=== PATIENT | female | born 1975 | race African-American/Black ===

== ENCOUNTER 2016-06-01 11:31 | Day surgery (SDC) | payer OTHER ==
[2016-06-01] VITALS (16 sets, daily range): BP systolic 100–138; BP diastolic 56–100; PULSE 74–82; RESP 11–19; Ht 165.1 cm; Wt 99.0 kg
[~2016-06-01] VITALS: Ht 165.1 cm; Wt 99.0 kg
[~2016-06-01 11:31] MED LIST: CEFAZOLIN 1 GM INJ ONE; CEFAZOLIN 2 GM/50 ML (PMX) 50 ML IVPB SCH; SOD CHLORIDE 0.9% 1,000 ML IV SCH
[2016-06-01] MEDS ORDERED: BUPIVACAINE 0.25% (MPF) 30 ML INJ ONE (15:44)
[2016-06-01] MEDS ORDERED: PROPOFOL 60 ML ONE (16:53)
[2016-06-01] MEDS ORDERED: LIDOCAINE 2% (SDV) 5 ML INJ ONE (16:53)
[2016-06-01] MEDS ORDERED: FENTAnyl 50 MCG/ML VIAL ONE (16:54)
--- NOTE | 2016-06-01 17:56 | OPR ---
DATE OF OPERATION: 06/01/2016 INDICATION: This is a 41-year-old female with a posterior fissure. She requests surgical excision. Risks, alternatives, benefits, and personnel were discussed with the patient. The patient express ed understanding and consents to the operation. PREOPERATIVE DIAGNOSIS: Posterior fissure. POSTOPERATIVE DIAGNOSIS: Posterior fissure. OPERATION PERFORMED: 1. Posterior fissurectomy. 2. Rigid proctoscopy. SURGEON: Michelle Gilliam MD SPECIMEN: Posterior fissure. COMPLICATIONS: None. ANESTHESIA: General. PROCEDURE: The patient was taken to the OR and prepped and draped in the usual sterile fashion. Rm rgical timeout was performed. IV antibiotics were given. Rigid proctoscopy was performed. There w as no evidence of any anal lesions or masses. Prep was poor. Attention was addressed to the grain mill products inspector ior fissure. There was sentinel piles in the posterior fissure. This was all excised with the 15 b lade and cautery. The surgical site was hemostatic. The wound was then primarily closed with a run amirah 3-0 Vicryl. Local anesthesia was injected. Dry dressings were applied. Dictated By: MICHELLE HARMAN/JONATHON Conf#: [id number] DID#: [id number]
[2016-06-01] MEDS ORDERED: hydrALAzine 20 MG INJ IV PRN (18:00)
[2016-06-01] MEDS ORDERED: ONDANSETRON 4 MG INJ IV PRN (18:00)
[2016-06-01] MEDS ORDERED: HYDROCODONE/APAP (5/325) TAB PO ONE (18:00)
[2016-06-01] MEDS ORDERED: LABETALOL HCL 20MG INJ IV PRN (18:00)
[2016-06-01] MEDS ORDERED: HYDROmorphONE (0.2 MG/ML) 10ML SYG IV PRN (18:00)
[2016-06-01] MEDS ORDERED: MEPERIDINE 25 MG INJ IV PRN (18:00)
[2016-06-01] MEDS ORDERED: EPHEDrine SULFATE 50 MG/5 ML SYG IV PRN (18:00)
[2016-06-01] MEDS: HYDROmorphONE (0.2 MG/ML) 10ML SYG IV PRN ×2 (18:10→18:24)
== END 2016-06-01 19:22 | disposition home or self-care (01) ==
LOC: SDS 11:31
PROVIDERS: ATTEND Surgery
DX: K60.2 Anal fissure, unspecified (principal); I10 Essential (primary) hypertension; Z86.73 Personal history of transient ischemic attack (TIA), and cerebral infarction without residual deficits
CPT/HCPCS: 45300; 46200; 88304; J0690; J1170; J2405; J3010; Z7512; Z7610

== ENCOUNTER 2016-06-12 14:19 | Inpatient (IN) | payer OTHER ==
[~2016-06-12] VITALS: Ht 165.1 cm; Wt 94.7 kg
--- NOTE | 2016-06-12 15:04 | ERA ---
ER Documentation Chief Complaint Date/Time DATE: 06/12/16 TIME: 15:04 Chief Complaint constipation x 3 weeks HPI The patient is a 41-year-old female, presenting to the ER because of severe constipation for the last 3 weeks after fissurectomy by Dr. Gilliam. The patient was evaluated by Dr. Gilliam today who sent her to the ER for disimpaction by gastroenterology. She denies fever, chills, neck pain, chest pain, dyspnea. She complains of generalized diffuse abdominal discomfort denies dysuria, polyuria. She does not smoke nor drink Past medical history: History of CVA, hypertension Past surgical history: Hysterectomy, cholecystectomy ROS All systems reviewed and are negative except as per history of present illness. Allergies Allergies: Coded Allergies: No Known Allergy (Unverified , 05/31/16) PER PRE-OP PMhx/Soc History of Surgery: Yes (PARTIAL HYSTERECTOMY.CHOLECYSTECTOMY.BTL) Anesthesia Reaction: No Hx Neurological Disorder: Yes (MILD STROKE ,SZ X1 EPISODE) Hx Respiratory Disorders: No Hx Cardiac Disorders: Yes (HTN) Hx Psychiatric Problems: No Hx Miscellaneous Medical Probl: No Hx Alcohol Use: No Hx Substance Use: No Hx Tobacco Use: No Physical Exam Vitals Vital Signs Date Time Temp Pulse Resp B/P Pulse Ox O2 Delivery O2 Flow Rate FiO2 06/12/16 14:22 98.1 83 18 134/90 99 Physical Exam Const: No acute distress. Head: Atraumatic. Eyes: Normal Conjunctiva. ENT: Normal External Ears, Nose and Mouth. Neck: Full range of motion. No meningismus. Resp: Clear to auscultation bilaterally. Cardio: Regular rate and rhythm, no murmurs. Abd: Soft, non distended, normal bowel sounds, vague and diffuse abdominal discomfort, no rigidity, rebound, CVA tenderness Skin: No petechiae or rashes. Back: No midline or flank tenderness. Ext: No cyanosis, or edema. Neur: Awake and alert. No focal deficit Psych: Normal Mood and Affect. Result Diagram: 06/12/16 1630 06/12/16 1630 Results 24 hrs Laboratory Tests Test 06/12/16 16:30 06/12/16 17:35 White Blood Count 7.610^3/ul Red Blood Count 3.9210^6/ul Hemoglobin 11.3g/dl Hematocrit 35.9% Mean Corpuscular Volume 91.6fl Mean Corpuscular Hemoglobin 28.8pg Mean Corpuscular Hemoglobin Concent 31.5g/dl Red Cell Distribution Width 14.4% Platelet Count 86345^3/UL Mean Platelet Volume 9.8fl Neutrophils % 78.0% Lymphocytes % 15.0% Monocytes % 7.0% Neutrophils # 5.910^3/ul Lymphocytes # 1.110^3/ul Monocytes # 0.510^3/ul Sodium Level 142mmol/L Potassium Level 3.6mmol/L Chloride Level 97mmol/L Carbon Dioxide Level 30mmol/L Anion Gap 19 Blood Urea Nitrogen 14mg/dl Creatinine 1.52mg/dl Glucose Level 95mg/dl Calcium Level 10.0mg/dl Total Bilirubin 0.4mg/dl Direct Bilirubin 0.00mg/dl Indirect Bilirubin 0.4mg/dl Aspartate Amino Transf (AST/SGOT) 128IU/L Alanine Aminotransferase (ALT/SGPT) 64IU/L Alkaline Phosphatase 58IU/L Total Protein 9.4g/dl Albumin 4.9g/dl Globulin 4.50g/dl Albumin/Globulin Ratio 1.08 Lipase 180U/L Bedside Urine pH (LAB) 6.5 Bedside Urine Protein (LAB) 2+ Bedside Urine Glucose (UA) Negative Bedside Urine Ketones (LAB) Trace Bedside Urine Blood Negative Bedside Urine Nitrite (LAB) Negative Bedside Urine Leukocyte Esterase (L Negative Procedures/[place] [id number] Radiology Main Line: [phone] DIAGNOSTIC IMAGING REPORT Patient: TRACEY ERAZO : 1975 Age: 41 Sex: F MR #: [id number] [facility] #: [id number] DOS: 06/12/16 formerly [facility] Ordering MD: JOANNA FELIPE MD Location: FTE Room/Bed: PROCEDURE: CT Abdomen and Pelvis without contrast. CLINICAL INDICATION: Abdominal pain recent history of rectal fissure surgery. TECHNIQUE: CT scan of the abdomen and pelvis without contrast was performed on a multidetector high-resolution CT scanner. The patient was scanned without intravenous contrast. Coronal and sagittal reformatted images were obtained from the axial source images. Images were reviewed on a high-resolution PACS workstation. The total exam CTDI equals 19.62 mGy and the total exam DLP equals 1267.99 mGy-cm. One or more of the following dose reduction techniques were used: Automated exposure control. Adjustment of the mA and/or kV according to patient size. Use of iterative reconstruction technique. COMPARISON: None FINDINGS: CT abdomen: The lung bases are clear. The heart is normal in size with mild circumferential pericardial effusion. The liver is normal in size and density without focal mass or intrahepatic biliary dilatation. The spleen is normal in size and homogeneous in density. The stomach is partially collapsed, but is grossly unremarkable. The pancreas as visualized is normal. The gallbladder is surgically absent. There is no evidence for biliary dilatation. The adrenal glands are symmetric and normal. The kidneys are symmetrically unremarkable as well. There is 2 mm punctate nonobstructing stone in the mid pole right kidney. The aorta is of normal caliber. There is no retroperitoneal lymphadenopathy. The dewey hepatis region is clear. The bowel and mesentery, as visualized, are equally unremarkable. CT pelvis: The small bowel loops situated within the pelvis are unremarkable. The pelvic organs are normal. The pelvic sidewalls and inguinal regions are clear. The sigmoid colon and rectum are remarkable for significant stool retention. No mass, lymphadenopathy, or free fluid is seen. No acute inflammation is seen. The surrounding osseous structures are remarkable for degenerative spondylosis of the spine. No osteolytic or osteoblastic lesion is detected. IMPRESSION: 1. Significant stool retention in the sigmoid colon and the rectum. 2. Normal heart size with mild circumferential pericardial effusion. 3. Status post cholecystectomy. No biliary ductal dilatation. 4. A punctate 2 mm nonobstructing stone in the right kidney. RPTAT: BB .Ben Obrien MD, Date Time Electronically viewed and signed by .Ben Obrien MD, on 06/12/2016 17:42 .O/ CC: JOANNA FELIPE MD MEDICAL MAKING DECISION: The patient is a 41-year-old female, presenting with obstipation, renal insufficiency. The differential diagnoses considered include but are not limited to cholelithiasis, cholecystitis, cystitis, pancreatitis, hepatitis, gastritis, peptic ulcer disease, gastric ulcer, appendicitis, diverticulitis, cholangitis, choledocholithiasis, partial small bowel obstruction. Departure Diagnosis: Primary Impression: Obstipation Additional Impressions: Renal insufficiency Anemia Condition: Stable Comments I discussed the patient with the [facility] hospitalist who authorized admission to [facility] panel I discussed the findings with the patient. I discussed the patient with his physician Dr. Matson who was made aware of the lab, the treatment, the patient condition. The patient is admitted to medical surgery bed at 7:40 PM JOANNA FELIPE MD Jun 12, 2016 15:04
[2016-06-12 16:45] LABS: ADD SCAN DIFF NO
[2016-06-12 16:48] LABS: HEMATOCRIT 35.9 % (37.0-47.0); HEMOGLOBIN 11.3 g/dl (12.0-16.0); MEAN CORPUSCULAR HEMOGLOBIN 28.8 pg (29.0-33.0); MEAN CORPUSCULAR HGB CONC 31.5 g/dl (32.0-37.0); MEAN CORPUSCULAR VOLUME 91.6 fl (82.0-101.0); MEAN PLATELET VOLUME 9.8 fl (7.4-10.4); PLATELET COUNT 251 10^3/UL (140-415); RED BLOOD COUNT 3.92 10^6/ul (4.20-5.40); RED CELL DISTRIBUTION WIDTH 14.4 % (11.5-14.5); WHITE BLOOD COUNT 7.6 10^3/ul (4.8-10.8)
[2016-06-12 17:02] LABS: ALBUMIN 4.9 g/dl (3.3-4.9)
[2016-06-12 17:03] LABS: POTASSIUM 3.6 mmol/L (3.5-5.1)
[2016-06-12 17:05] LABS: ALBUMIN/GLOBULIN RATIO 1.08; BILIRUBIN,INDIRECT 0.4 mg/dl (0-1.1); BILIRUBIN,TOTAL 0.4 mg/dl (0.2-1.3); CREATININE 1.52 mg/dl (0.44-1.00); TOTAL PROTEIN 9.4 g/dl (6.1-8.1)
[2016-06-12 17:35] LABS: URINE BLOOD (Dip) POC Negative (NEGATIVE)
[2016-06-12 17:37] LABS: LYMPHOCYTES # 1.1 10^3/ul (0.8-2.9); MONOCYTE # 0.5 10^3/ul (0.3-0.9); NEUTROPHIL # 5.9 10^3/ul (1.6-7.5)
--- NOTE | 2016-06-12 17:42 | RADRPT ---
PROCEDURE: CT Abdomen and Pelvis without contrast. CLINICAL INDICATION: Abdominal pain recent history of rectal fissure surgery. TECHNIQUE: CT scan of the abdomen and pelvis without contrast was performed on a multidetector hig h-resolution CT scanner. The patient was scanned without intravenous contrast. Coronal and sagittal reformatted images were obtained from the axial source images. Images were reviewed on a high-resol [employer] PACS workstation. The total exam CTDI equals 19.62 mGy and the total exam DLP equals 1267.99 m Gy-cm. One or more of the following dose reduction techniques were used: Automated exposure control. Adjustment of the mA and/or kV according to patient size. Use of iterative reconstruction technique. COMPARISON: None FINDINGS: CT abdomen: The lung bases are clear. The heart is normal in size with mild circumferential pericardial effusion . The liver is normal in size and density without focal mass or intrahepatic biliary dilatation. T he spleen is normal in size and homogeneous in density. The stomach is partially collapsed, but is grossly unremarkable. The pancreas as visualized is normal. The gallbladder is surgically absent. There is no evidence for biliary dilatation. The adrenal glands are symmetric and normal. The kidn eys are symmetrically unremarkable as well. There is 2 mm punctate nonobstructing stone in the mid pole right kidney. The aorta is of normal caliber. There is no retroperitoneal lymphadenopathy. The dewey hepatis christian on is clear. The bowel and mesentery, as visualized, are equally unremarkable. CT pelvis: The small bowel loops situated within the pelvis are unremarkable. The pelvic organs are normal. T he pelvic sidewalls and inguinal regions are clear. The sigmoid colon and rectum are remarkable for significant stool retention. No mass, lymphadenopathy, or free fluid is seen. No acute inflammati on is seen. The surrounding osseous structures are remarkable for degenerative spondylosis of the spine. No ost eolytic or osteoblastic lesion is detected. IMPRESSION: 1. Significant stool retention in the sigmoid colon and the rectum. 2. Normal heart size with mild circumferential pericardial effusion. 3. Status post cholecystectomy. No biliary ductal dilatation. 4. A punctate 2 mm nonobstructing stone in the right kidney. RPTAT: BB .Ben Obrien MD, Date Time Electronically viewed and signed by .Ben Obrien MD, MD on 06/12/2016 17:42 .O/
[2016-06-12] MEDS ORDERED: KETOROLAC 15 MG INJ IV STA (20:02)
--- NOTE | 2016-06-12 20:04 | HP ---
Date/Time of Note Date/Time of Note DATE: 06/12/16 TIME: 20:03 Assessment/Plan VTE Prophylaxis VTE Prophylaxis Intervention: other (Lovenox) Assessment/Plan Assessment/Plan 1) Anal pain s/p fissurectomy - Admit to Med Surg - NPO initially, but changed to clears - Toradol for pain control as patient did not care for narcotics and does well on Aleve at home - Phone4 Consult with Dr. Gilliam 2) Functional constipation - Magnesium Citrate po - CONSULT: Gastroenterology - Dr. Ybarra (will cancel if pt able to have BM) 3) Renal insufficiency - Monitor - BMP in AM HPI/ROS Admit Date/Time Admit Date/Time 06/12/161944 Hx of Present Illness Per ER Physician, this 41-year-old female, presents to the ER because of severe constipation for the last 3 weeks after fissurectomy by Dr. Gilliam. The patient was evaluated by Dr. Gilliam today who sent her to the ER for disimpaction by gastroenterology. Patient complains of severe rectal pain when she tries to have a BM. She states she has been doing Sitz-Baths. Her only symptoms are rectal pain and bleeding and mild abdominal pain. No nausea, vomiting, fever or chills. I contacted Dr. Ybarra after patient was admitted. He gave me a suggestion for Lactulose 60 mL po Q 2 hr x 3, but said her surgeon should make the call. I then contacted Dr. Gilliam, and he stated that patient had been non-compliant with his bowel regiment. She was supposed to notify him if she did not have a BM in a day or 2, which she did not. He did see her in his office today, and he recommends either GoLytely or Magnesium Citrate, and if patient has a BM, she can be discharged and follow-up with him, and the GI consult can be canceled. If she salazar not have a BM. then a GI procedure would be indicated. ROS General: Admits: Denies: Fever, Chills, Poor Appetite, Generalized Body Aches Eyes: Admits: Denies: Blurry Vision, Double Vision HENT: Admits: Denies: Ear Pain/Pressure, Runny/Stuffy Nose, Sore Throat Cardiovascular: Admits: Denies: Chest Pain, Palpitations, Leg Swelling Pulmonary: Admits: Denies: Cough, Wheeze, Shortness of Breath Gastrointestinal: Admits: Denies: Abdominal Pain, Nausea, Vomiting, Diarrhea, Blood in Stool, Black-Colored Stool Urogenital: Admits: Denies: Burning with Urination, Urinary Frequency, Blood in Urine, Nocturia Musculoskeletal: Admits: Denies: Joint Pain, Joint Swelling, Muscle Pain Neurological: Admits: Denies: Headache, Dizziness, Numbness, Tingling, Shooting Pains Integumentary: Admits: Denies: Rash, Itch Endocrine: Admits: Denies: Excessive Thirst, Excessive Hunger, Intolerant to Cold , Intolerant to Heat Psychiatric: Admits: Denies: Anxiety, Depression PMH/Family/Social Past Medical History HTN, 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 (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, Seizure x 1 Past Surgical History Hysterectomy; Cholecystectomy; BTL Social History Alcohol Use: none Smoking Status: Never smoker Drug Use: none Exam/Review of Systems Vital Signs Vitals Vital Signs Date Time Temp Pulse Resp B/P Pulse Ox O2 Delivery O2 Flow Rate FiO2 06/12/16 14:22 98.1 83 18 134/90 99 Exam Exam General: Overweight Black female, alert and oriented, in no acute distress Eyes: Sclera White, EOMI HENT: Normocephalic/Atraumatic, External Ears/Nose Normal, Moist Mucus Membranes Neck: Supple, Trachea Midline Cardiovascular: Normal Rate, Normal Rhythm, Normal S1 and S2, No Murmur, No Extra Sounds. Radial pulse +2/4. No pedal edema. Pulmonary: Clear to Auscultation Bilaterally, Normal Respiratory Effort, No Rales, Rhonchi or Wheezes Gastrointestinal: Normoactive Bowel Sounds, Soft, Mild generalized tenderness. No guarding or rebound.No distention, No Hepatosplenomegaly Appreciated, No Pulsatile Masses. Rectal Exam: Deferred Urogenital: Deferred Musculoskeletal: Normal Muscle Bulk and Tone Neurological: CN II - XII Grossly Intact, Non-Focal, Speech Normal other than patient occasionally has a delay with expressing her thoughts, but she is able to say all the words she want to. Integumentary: Normal Moisture and Temperature, Good Turgor, No Jaundice, No Rash Lymphatic: No Cervical Lymphadenopathy Psychiatric: Appropriate Mood and Affect, Good Eye Contact Labs Result Diagram: 06/12/16 1630 06/12/16 1630 Procedures Procedures Laboratory Tests Test 06/12/16 16:30 06/12/16 17:35 White Blood Count 7.610^3/ul Red Blood Count 3.9210^6/ul Hemoglobin 11.3g/dl Hematocrit 35.9% Mean Corpuscular Volume 91.6fl Mean Corpuscular Hemoglobin 28.8pg Mean Corpuscular Hemoglobin Concent 31.5g/dl Red Cell Distribution Width 14.4% Platelet Count 93043^3/UL Mean Platelet Volume 9.8fl Neutrophils % 78.0% Lymphocytes % 15.0% Monocytes % 7.0% Neutrophils # 5.910^3/ul Lymphocytes # 1.110^3/ul Monocytes # 0.510^3/ul Sodium Level 142mmol/L Potassium Level 3.6mmol/L Chloride Level 97mmol/L Carbon Dioxide Level 30mmol/L Anion Gap 19 Blood Urea Nitrogen 14mg/dl Creatinine 1.52mg/dl Glucose Level 95mg/dl Calcium Level 10.0mg/dl Total Bilirubin 0.4mg/dl Direct Bilirubin 0.00mg/dl Indirect Bilirubin 0.4mg/dl Aspartate Amino Transf (AST/SGOT) 128IU/L Alanine Aminotransferase (ALT/SGPT) 64IU/L Alkaline Phosphatase 58IU/L Total Protein 9.4g/dl Albumin 4.9g/dl Globulin 4.50g/dl Albumin/Globulin Ratio 1.08 Lipase 180U/L Bedside Urine pH (LAB) 6.5 Bedside Urine Protein (LAB) 2+ Bedside Urine Glucose (UA) Negative Bedside Urine Ketones (LAB) Trace Bedside Urine Blood Negative Bedside Urine Nitrite (LAB) Negative Bedside Urine Leukocyte Esterase (L Negative PROCEDURE: CT Abdomen and Pelvis without contrast. CLINICAL INDICATION: Abdominal pain recent history of rectal fissure surgery. COMPARISON: None IMPRESSION: 1. Significant stool retention in the sigmoid colon and the rectum. 2. Normal heart size with mild circumferential pericardial effusion. 3. Status post cholecystectomy. No biliary ductal dilatation. 4. A punctate 2 mm nonobstructing stone in the right kidney. LESLY REN DO Jun 12, 2016 20:04
[2016-06-12] MEDS ORDERED: METOCLOPRAMIDE 10 MG INJ IV PRN (20:30)
[2016-06-12] MEDS ORDERED: NACL 0.9% 3 ML SYG IV SCH (20:30)
[2016-06-12] MEDS ORDERED: ACETAMINOPHEN 325 MG TAB PO PRN (20:30)
[2016-06-12] MEDS ORDERED: ONDANSETRON 4 MG TAB PO PRN (20:30)
[2016-06-12 21:49] VITALS: TEMP 98.3
[2016-06-12] MEDS ORDERED: GUAN1TAB15 PO (22:10)
[2016-06-12] MEDS ORDERED: ZOC10 PO (22:11)
[2016-06-12] MEDS ORDERED: SPIR25TA PO (22:11)
[2016-06-12] MEDS ORDERED: CHLORTHALIDONE PO (22:12)
[2016-06-12] MEDS ORDERED: MAGNESIUM CITRATE 300 ML BTL PO ONE (22:30)
[2016-06-12 22:48] LABS: HAAIG REFLEX REFLEX FILED
[2016-06-12 22:53] VITALS: Ht 165.1 cm; Wt 94.7 kg
[2016-06-12 22:56] VITALS: BP 139/100; RESP 18
[2016-06-12 23:44] LABS: HEPATITIS B CORE ANTIBODY NEGATIVE (NEGATIVE)
[2016-06-13] MEDS: FAMOTIDINE 20 MG INJ IV SCH ×2 (00:05→08:31)
[2016-06-13 05:42] LABS: ADD SCAN DIFF NO
[2016-06-13 05:46] LABS: BASOPHILS % 0.4 % (0.0-2.0); HEMATOCRIT 35.7 % (37.0-47.0); HEMOGLOBIN 11.8 g/dl (12.0-16.0); LYMPHOCYTES # 1.4 10^3/ul (0.8-2.9); LYMPHOCYTES % 25.1 % (15.0-51.0); MEAN CORPUSCULAR HEMOGLOBIN 29.8 pg (29.0-33.0); MEAN CORPUSCULAR HGB CONC 33.1 g/dl (32.0-37.0); MEAN CORPUSCULAR VOLUME 90.2 fl (82.0-101.0); MEAN PLATELET VOLUME 9.8 fl (7.4-10.4); MONOCYTE # 0.4 10^3/ul (0.3-0.9); MONOCYTES % 6.9 % (0.0-11.0); NEUTROPHIL # 3.7 10^3/ul (1.6-7.5); NEUTROPHILS % 67.4 % (39.0-77.0); PLATELET COUNT 257 10^3/UL (140-415); RED BLOOD COUNT 3.96 10^6/ul (4.20-5.40); RED CELL DISTRIBUTION WIDTH 14.1 % (11.5-14.5); WHITE BLOOD COUNT 5.5 10^3/ul (4.8-10.8)
[2016-06-13 06:24] LABS: POTASSIUM 3.3 mmol/L (3.5-5.1)
[2016-06-13 06:27] LABS: CREATININE 1.45 mg/dl (0.44-1.00)
[2016-06-13 06:28] LABS: CALCIUM 9.7 mg/dl (8.4-10.2)
[2016-06-13 07:52] VITALS: BP 132/92; RESP 16
[2016-06-13] MEDS: SPIRONOLACTONE 25 MG TAB PO SCH (08:26)
[2016-06-13] MEDS: ENOXAPARIN 40 MG/0.4 ML SYG SC SCH (09:13)
--- NOTE | 2016-06-13 10:56 | CONS ---
Date/Time of Note Date/Time of Note DATE: 06/13/16 TIME: 10:37 Assessment/Plan Assessment/Plan Additional Assessment/Plan Assessment * Constipation functional vs others * Anal pain * S/P Fissurectomy 2 weeks ago * 06/11/2016 CT abdomen /pelvis Significant stool retention in the sigmoid colon and the rectum. Normal heart size with mild circumferential pericardial effusion. Status post cholecystectomy. No biliary ductal dilatation. A punctate 2 mm nonobstructing stone in the right kidney. * Hypertension Plan * may have clear liquids * lactulose * surgery consult Consultation Date/Type/Reason Admit Date/Time 06/12/161944 Type of Consultation: Gastroenterology Reason for Consultation Obstipation Referring Provider: LESLY REN DO Hx of Present Illness 31 year olf female with past medical history of hypertension referred to us for evaluation of obstipation.Patient had fissurectomy [address] Gilliam,, since then patient is unable to have bowel movement but with flatus ,denies any nausea and vomiting.She followed up with surgeon and was referred to our emergency room for evaluation and disimpaction.she complained of severe anal pain with no bowel movement despite hot sitz bath,and dulcolax. CT abdomen pelvis revealed 1. Significant stool retention in the sigmoid colon and the rectum. 2. Normal heart size with mild circumferential pericardial effusion. 3. Status post cholecystectomy. No biliary ductal dilatation. 4. A punctate 2 mm nonobstructing stone in the right kidney. Patient still complains of anal pain and obstipation despite intake of Magnesium, citrate,no fever or abdominal pain Constitutional: improved, no complaints Eyes: no complaints ENT: no complaints Respiratory: no complaints Cardiovascular: no complaints Gastrointestinal: constipation, flatus, other (obstipation), pain, No passing stool, No vomiting Genitourinary: no complaints Musculoskeletal: no complaints Skin: no complaints Neurologic: no complaints Endocrine: no complaints Lymphatic: no complaints Psychological: nl mood/affect, no complaints Immunologic: no complaints Past Medical History Medical History: hypertension Past Surgical History Past Surgical Hx: cholecystectomy Family History Significant Family History: no pertinent family hx Social History Alcohol Use: none Smoking Status: Never smoker Drug Use: none Exam/Review of Systems Vital Signs Vitals Vital Signs Date Time Temp Pulse Resp B/P Pulse Ox O2 Delivery O2 Flow Rate FiO2 06/13/16 07:52 98.2 80 16 132/92 98 06/12/16 21:49 Room Air Exam Constitutional: alert, oriented, other (anxious), well developed Psych: nl mood/affect, no complaints Head: atraumatic, normocephalic Eyes: EOMI, PERRL, nl conjunctiva, nl lids, nl sclera ENMT: nl external ears & nose, nl lips & teeth, nl nasal mucosa & septum Neck: non-tender, supple Respiratory: clear to auscultation, normal air movement Cardiovascular: nl pulses, regular rate and rhythm Gastrointestinal: bowel sounds, nl liver, spleen, non-tender, soft, No rebound or guarding, No tender Musculoskeletal: nl extremities to inspection, nl gait and stance Extremities: normal pulses Neurological: CUSTOMIZER II-XII intact, nl mental status, nl speech, nl strength Skin: nl turgor, No rash or lesions Lymph: nl lymph nodes Results Result Diagram: 06/13/16 0525 06/13/16 0525 Results 24 hrs Laboratory Tests Test 06/12/16 16:30 06/12/16 16:35 06/12/16 17:35 06/13/16 05:25 White Blood Count 7.6 5.5 # Red Blood Count 3.92 L 3.96 L Hemoglobin 11.3 L 11.8 L Hematocrit 35.9 L 35.7 L Mean Corpuscular Volume 91.6 90.2 Mean Corpuscular Hemoglobin 28.8 L 29.8 Mean Corpuscular Hemoglobin Concent 31.5 L 33.1 Red Cell Distribution Width 14.4 14.1 Platelet Count 251 257 Mean Platelet Volume 9.8 9.8 Neutrophils % 78.0 H 67.4 Lymphocytes % 15.0 25.1 Monocytes % 7.0 6.9 Neutrophils # 5.9 3.7 Lymphocytes # 1.1 1.4 Monocytes # 0.5 0.4 Sodium Level 142 141 Potassium Level 3.6 3.3 L Chloride Level 97 100 Carbon Dioxide Level 30 28 Anion Gap 19 H 16 Blood Urea Nitrogen 14 14 Creatinine 1.52 H 1.45 H Glucose Level 95 91 Calcium Level 10.0 9.7 Total Bilirubin 0.4 Direct Bilirubin 0.00 Indirect Bilirubin 0.4 Aspartate Amino Transf (AST/SGOT) 128 H Alanine Aminotransferase (ALT/SGPT) 64 Alkaline Phosphatase 58 Total Protein 9.4 H Albumin 4.9 Globulin 4.50 H Albumin/Globulin Ratio 1.08 Lipase 180 Hepatitis B Surface Antigen NEGATIVE Hepatitis B Core Total Antibody NEGATIVE Hepatitis C Antibody NEGATIVE Bedside Urine pH (LAB) 6.5 Bedside Urine Protein (LAB) 2+ H Bedside Urine Glucose (UA) Negative Bedside Urine Ketones (LAB) Trace H Bedside Urine Blood Negative Bedside Urine Nitrite (LAB) Negative Bedside Urine Leukocyte Esterase (L Negative Eosinophils % 0.0 Basophils % 0.4 Nucleated Red Blood Cells % 0.0 Eosinophils # 0.0 Basophils # 0.0 Nucleated Red Blood Cells # 0.0 Medications Medications Current Medications Ondansetron HCl (Zofran Tab) 4 mg Q6H PRN PO NAUSEA AND/OR VOMITING; Start 06/12 at 20:30 Metoclopramide HCl (Reglan) 10 mg Q6H PRN IV NAUSEA AND/OR VOMITING; Start 06/12 at 20:30 Acetaminophen (Tylenol Tab) 650 mg Q6H PRN PO PAIN LEVEL 1-3 OR FEVER; Start at 20:30 Morphine Sulfate (morphine) 2 mg Q4H PRN IV SEVERE PAIN LEVEL 7-10; Start at 20:30 Famotidine (Pepcid Iv) 20 mg DAILY IV Last administered on 06/13/16 08:31; Admin Dose 20 MG; Start 06/12/16 at 22:00 Enoxaparin Sodium (Lovenox) 40 mg DAILY SC Last administered on 06/13/16 09:13 ; Admin Dose 40 MG; Start 06/13/16 at 09:00 Guanfacine HCl (Tenex) 1 mg HS PO ; Start 06/13/16 at 21:00 Spironolactone (Aldactone) 25 mg DAILY PO ; Start 06/13/16 at 09:00 Miscellaneous Information 25 mg QHS PO ; Start 06/13/16 at 21:00; Status UNV SIMON GO MD Jun 13, 2016 10:47
[2016-06-13] MEDS ORDERED: NA PHOSPHATE/BIPHOS 133 ML ENEMA PR ONE (12:30)
[2016-06-13] MEDS: morphine 2 MG INJ IV PRN ×2 (12:32→16:57)
--- NOTE | 2016-06-13 14:25 | CONS ---
DATE OF ADMISSION: 06/12/2016 DATE OF CONSULTATION: 06/13/2016 HISTORY OF PRESENT ILLNESS: This is a 41-year-old female who underwent recent anal fissurectomy. She presents to the ER for obstipation. She has not been following her bowel regimen aggressively. She is admitted through the ER for evaluation and management. PAST MEDICAL HISTORY: Hypertension, CVA in 2006 with residual speech impairment, with history of se izures. PAST SURGICAL HISTORY: Hysterectomy, cholecystectomy and bilateral tubal ligation. PHYSICAL EXAMINATION: VITAL SIGNS: Temperature 98.2, pulse is 88, respiratory rate is 16, blood pressure is 132/92 GENERAL: Overweight female, alert and oriented. HEENT: PERRLA. NECK: Supple, midline. CARDIOVASCULAR: Regular rate and rhythm. PULMONARY: Clear to auscultation. ABDOMEN: Distended, soft. No peritoneal signs, no rebound tenderness. LABORATORY DATA: White blood cell count is 5.5, hemoglobin 11.8, hematocrit 35.7, platelets 257. C hemistries: Sodium is 141, potassium 3.3, chloride 100, carbon dioxide is 28, BUN 14, creatinine 1. 45, glucose 91. ASSESSMENT AND PLAN: This is a 41-year-old female with obstipation versus constipation after surger y. She will get a bowel regimen and may need a colonoscopic disimpaction if she does have a bowel m ovement. We will continue to follow. Dictated By: ALLIE HARMAN/JONATHON Conf#: [id number] DID#: [id number]
[2016-06-13] MEDS: LACTULOSE 30ML CUP PO SCH ×3 (16:06→22:55)
--- NOTE | 2016-06-13 17:17 | PN ---
Date/Time of Note Date/Time of Note DATE: 06/13/16 TIME: 17:15 Assessment/Plan VTE Prophylaxis VTE Prophylaxis Intervention: SCD's Lines/Catheters IV Catheter Type (from Nrsg): Saline Lock Assessment/Plan Assessment/Plan 1) Anal pain s/p fissurectomy General surgery cosnutl 2) Functional constipation - Magnesium Citrate po - CONSULT: Gastroenterology - Dr. Ybarra (will cancel if pt able to have BM) 3) Renal insufficiency SCD for DVT prophylaxis will give Subjective 24 Hr Interval Summary Free Text/Dictation still has not had a BM yet, mag citrate given, Exam/Review of Systems Vital Signs Vitals Vital Signs Date Time Temp Pulse Resp B/P Pulse Ox O2 Delivery O2 Flow Rate FiO2 06/13/16 07:52 98.2 80 16 132/92 98 06/12/16 21:49 Room Air Exam Constitutional: alert, oriented, other (anxious), well developed Respiratory: clear to auscultation, normal air movement Cardiovascular: nl pulses, regular rate and rhythm Gastrointestinal: bowel sounds, nl liver, spleen, non-tender, soft, No rebound or guarding, No tender Musculoskeletal: nl extremities to inspection, nl gait and stance Extremities: normal pulses Neurological: STRAPPER OPERATOR II-XII intact, nl mental status, nl speech, nl strength Results Result Diagram: 06/13/1625 06/13/16 0525 Results 24 hrs Laboratory Tests Test 06/12/16 17:35 06/13/16 05:25 Bedside Urine pH (LAB) 6.5 Bedside Urine Protein (LAB) 2+ H Bedside Urine Glucose (UA) Negative Bedside Urine Ketones (LAB) Trace H Bedside Urine Blood Negative Bedside Urine Nitrite (LAB) Negative Bedside Urine Leukocyte Esterase (L Negative White Blood Count 5.5 # Red Blood Count 3.96 L Hemoglobin 11.8 L Hematocrit 35.7 L Mean Corpuscular Volume 90.2 Mean Corpuscular Hemoglobin 29.8 Mean Corpuscular Hemoglobin Concent 33.1 Red Cell Distribution Width 14.1 Platelet Count 257 Mean Platelet Volume 9.8 Neutrophils % 67.4 Lymphocytes % 25.1 Monocytes % 6.9 Eosinophils % 0.0 Basophils % 0.4 Nucleated Red Blood Cells % 0.0 Neutrophils # 3.7 Lymphocytes # 1.4 Monocytes # 0.4 Eosinophils # 0.0 Basophils # 0.0 Nucleated Red Blood Cells # 0.0 Sodium Level 141 Potassium Level 3.3 L Chloride Level 100 Carbon Dioxide Level 28 Anion Gap 16 Blood Urea Nitrogen 14 Creatinine 1.45 H Glucose Level 91 Calcium Level 9.7 Medications Medications Current Medications Ondansetron HCl (Zofran Tab) 4 mg Q6H PRN PO NAUSEA AND/OR VOMITING; Start 06/12 at 20:30 Metoclopramide HCl (Reglan) 10 mg Q6H PRN IV NAUSEA AND/OR VOMITING; Start 06/12 at 20:30 Acetaminophen (Tylenol Tab) 650 mg Q6H PRN PO PAIN LEVEL 1-3 OR FEVER; Start at 20:30 Morphine Sulfate (morphine) 2 mg Q4H PRN IV SEVERE PAIN LEVEL 7-10 Last administered on 06/13/16 16:57; Admin Dose 2 MG; Start 06/12/16 at 20:30 Famotidine (Pepcid Iv) 20 mg DAILY IV Last administered on 06/13/16 08:31; Admin Dose 20 MG; Start 06/12/16 at 22:00 Enoxaparin Sodium (Lovenox) 40 mg DAILY SC Last administered on 06/13/16 09:13 ; Admin Dose 40 MG; Start 06/13/16 at 09:00 Guanfacine HCl (Tenex) 1 mg HS PO ; Start 06/13/16 at 21:00 Spironolactone (Aldactone) 25 mg DAILY PO ; Start 06/13/16 at 09:00 Chlorthalidone (Hygroton) 25 mg QHS PO ; Start 06/13/16 at 21:00 Lactulose (Enulose) 20 gm Q8 PO Last administered on 06/13/16 16:06; Admin Dose 20 GM; Start 06/13/16 at 14:00 ROCKY HARRISON MD Jun 13, 2016 17:17
[2016-06-13] MEDS ORDERED: POTASSIUM CHLORIDE 20 MEQ in SOD CHLORIDE 0.9% 100 ML IVPB ONE (17:30)
[2016-06-13 19:00] VITALS: BP 104/56; RESP 16
[2016-06-13] MEDS: CHLORTHALIDONE 25 MG TAB PO SCH (20:20)
[2016-06-13] MEDS: GUANFACINE 1 MG TAB PO SCH (20:20)
[2016-06-13] MEDS ORDERED: LACTULOSE 30ML CUP PO SCH (23:00)
[2016-06-14] MEDS: LACTULOSE 30ML CUP PO SCH ×5 (00:31→20:24)
[2016-06-14] MEDS: morphine 2 MG INJ IV PRN ×3 (04:48→20:16)
[2016-06-14 06:18] LABS: ADD SCAN DIFF NO
[2016-06-14 06:20] LABS: BASOPHILS % 0.2 % (0.0-2.0); HEMATOCRIT 38.6 % (37.0-47.0); HEMOGLOBIN 12.7 g/dl (12.0-16.0); LYMPHOCYTES # 1.4 10^3/ul (0.8-2.9); LYMPHOCYTES % 9.9 % (15.0-51.0); MEAN CORPUSCULAR HEMOGLOBIN 30.3 pg (29.0-33.0); MEAN CORPUSCULAR HGB CONC 32.9 g/dl (32.0-37.0); MEAN CORPUSCULAR VOLUME 92.1 fl (82.0-101.0); MEAN PLATELET VOLUME 9.9 fl (7.4-10.4); MONOCYTE # 0.9 10^3/ul (0.3-0.9); MONOCYTES % 6.4 % (0.0-11.0); NEUTROPHIL # 11.5 10^3/ul (1.6-7.5); NEUTROPHILS % 83.1 % (39.0-77.0); PLATELET COUNT 290 10^3/UL (140-415); RED BLOOD COUNT 4.19 10^6/ul (4.20-5.40); RED CELL DISTRIBUTION WIDTH 14.6 % (11.5-14.5); WHITE BLOOD COUNT 13.9 10^3/ul (4.8-10.8)
[2016-06-14 07:12] LABS: POTASSIUM 3.5 mmol/L (3.5-5.1)
[2016-06-14 07:14] LABS: CREATININE 1.65 mg/dl (0.44-1.00)
[2016-06-14 07:15] LABS: CALCIUM 10.4 mg/dl (8.4-10.2)
[2016-06-14 08:17] VITALS: BP 162/98; RESP 16
[2016-06-14] MEDS: FAMOTIDINE 20 MG INJ IV SCH (09:07)
[2016-06-14] MEDS: SPIRONOLACTONE 25 MG TAB PO SCH (09:07)
--- NOTE | 2016-06-14 09:09 | PN ---
Date/Time of Note Date/Time of Note DATE: 06/14/16 TIME: 09:07 Assessment/Plan VTE Prophylaxis VTE Prophylaxis Intervention: SCD's Lines/Catheters IV Catheter Type (from Nrsg): Saline Lock Assessment/Plan Chief Complaint/Hosp Course severe constipation after anal fissurectomy Problems: Assessment/Plan if unimproved by tomorrow will manually disimpact in OR Subjective 24 Hr Interval Summary Free Text/Dictation still considerable pain and only liquid bm Exam/Review of Systems Vital Signs Vitals Vital Signs Date Time Temp Pulse Resp B/P Pulse Ox O2 Delivery O2 Flow Rate FiO2 06/14/16 08:17 98.2 99 16 162/98 100 06/12/16 21:49 Room Air Intake and Output 06/13/16 06/13/16 06/14/16 15:00 23:00 07:00 Intake Total 830 ml 600 ml Output Total 102 ml Balance 830 ml 498 ml Exam abd soft Results Result Diagram: 06/14/16 0534 06/14/16 0537 Results 24 hrs Laboratory Tests Test 06/14/16 05:34 06/14/16 05:37 White Blood Count 13.9 #H Red Blood Count 4.19 L Hemoglobin 12.7 Hematocrit 38.6 Mean Corpuscular Volume 92.1 Mean Corpuscular Hemoglobin 30.3 Mean Corpuscular Hemoglobin Concent 32.9 Red Cell Distribution Width 14.6 H Platelet Count 290 Mean Platelet Volume 9.9 Neutrophils % 83.1 H Lymphocytes % 9.9 L Monocytes % 6.4 Eosinophils % 0.0 Basophils % 0.2 Nucleated Red Blood Cells % 0.0 Neutrophils # 11.5 H Lymphocytes # 1.4 Monocytes # 0.9 Eosinophils # 0.0 Basophils # 0.0 Nucleated Red Blood Cells # 0.0 Magnesium Level 4.3 H Sodium Level 150 H Potassium Level 3.5 Chloride Level 101 Carbon Dioxide Level 29 Anion Gap 24 #H Blood Urea Nitrogen 19 Creatinine 1.65 H Glucose Level 121 Calcium Level 10.4 H Medications Medications Current Medications Ondansetron HCl (Zofran Tab) 4 mg Q6H PRN PO NAUSEA AND/OR VOMITING; Start 06/12 at 20:30 Metoclopramide HCl (Reglan) 10 mg Q6H PRN IV NAUSEA AND/OR VOMITING Last administered on 06/14/16t 04:47; Admin Dose 10 MG; Start 06/12/16 at 20:30 Acetaminophen (Tylenol Tab) 650 mg Q6H PRN PO PAIN LEVEL 1-3 OR FEVER; Start at 20:30 Morphine Sulfate (morphine) 2 mg Q4H PRN IV SEVERE PAIN LEVEL 7-10 Last administered on 06/14/16 04:48; Admin Dose 2 MG; Start 06/12/16 at 20:30 Famotidine (Pepcid Iv) 20 mg DAILY IV Last administered on 06/13/16 08:31; Admin Dose 20 MG; Start 06/12/16 at 22:00 Enoxaparin Sodium (Lovenox) 40 mg DAILY SC Last administered on 06/13/16 09:13 ; Admin Dose 40 MG; Start 06/13/16 at 09:00 Guanfacine HCl (Tenex) 1 mg HS PO ; Start 06/13/16 at 21:00 Spironolactone (Aldactone) 25 mg DAILY PO ; Start 06/13/16 at 09:00 Chlorthalidone (Hygroton) 25 mg QHS PO ; Start 06/13/16 at 21:00 Lactulose (Enulose) 20 gm Q8 PO Last administered on 06/14/16 02:56; Admin Dose 20 GM; Start 06/13/16 at 14:00 Shaq MUNSON Jun 14, 2016 09:08
[2016-06-14] MEDS: ENOXAPARIN 40 MG/0.4 ML SYG SC SCH (10:07)
--- NOTE | 2016-06-14 13:42 | PN ---
Date/Time of Note Date/Time of Note DATE: 06/14/16 TIME: 13:34 Assessment/Plan VTE Prophylaxis VTE Prophylaxis Intervention: ambulation Lines/Catheters IV C[facility] (from [facility]): Saline Lock Assessment/Plan Chief Complaint/Hosp Course Problems: Assessment/Plan Assessment * Constipation functional * Anal pain * S/P Fissurectomy 2 weeks ago * 06/11/2016 CT abdomen /pelvis Significant stool retention in the sigmoid colon and the rectum. Normal heart size with mild circumferential pericardial effusion. Status post cholecystectomy. No biliary ductal dilatation. A punctate 2 mm nonobstructing stone in the right kidney. * Hypertension Plan * may have clear liquids * scheduled for manual evacuation of feces by surgery * continue lactulose * pain control Subjective 24 Hr Interval Summary Free Text/Dictation * course reviewed with rn * patient seen and examined * complains of colicky abdominal pain * refused to take lactulose at nighttime liquid bowel movement but with flatus * scheduled tomorrow by surgeon for manual evacuation under anesthesia Exam/Review of Systems Vital Signs Vitals Vital Signs Date Time Temp Pulse Resp B/P Pulse Ox O2 Delivery O2 Flow Rate FiO2 06/14/16 08:17 98.2 99 16 162/98 100 06/12/16 21:49 Room Air Intake and Output 06/13/16 06/13/16 06/14/16 15:00 23:00 07:00 Intake Total 830 ml 600 ml Output Total 102 ml Balance 830 ml 498 ml Exam Constitutional: alert Respiratory: clear to auscultation, normal air movement Cardiovascular: nl pulses, regular rate and rhythm Gastrointestinal: bowel sounds, soft, tender (diffuse), No rebound or guarding Musculoskeletal: nl extremities to inspection, nl gait and stance Results Result Diagram: 06/14/16 0534 06/14/16 0537 Results 24 hrs Laboratory Tests Test 06/14/16 05:34 06/14/16 05:37 White Blood Count 13.9 #H Red Blood Count 4.19 L Hemoglobin 12.7 Hematocrit 38.6 Mean Corpuscular Volume 92.1 Mean Corpuscular Hemoglobin 30.3 Mean Corpuscular Hemoglobin Concent 32.9 Red Cell Distribution Width 14.6 H Platelet Count 290 Mean Platelet Volume 9.9 Neutrophils % 83.1 H Lymphocytes % 9.9 L Monocytes % 6.4 Eosinophils % 0.0 Basophils % 0.2 Nucleated Red Blood Cells % 0.0 Neutrophils # 11.5 H Lymphocytes # 1.4 Monocytes # 0.9 Eosinophils # 0.0 Basophils # 0.0 Nucleated Red Blood Cells # 0.0 Magnesium Level 4.3 H Sodium Level 150 H Potassium Level 3.5 Chloride Level 101 Carbon Dioxide Level 29 Anion Gap 24 #H Blood Urea Nitrogen 19 Creatinine 1.65 H Glucose Level 121 Calcium Level 10.4 H Medications Medications Current Medications Ondansetron HCl (Zofran Tab) 4 mg Q6H PRN PO NAUSEA AND/OR VOMITING; Start 06/12 at 20:30 Metoclopramide HCl (Reglan) 10 mg Q6H PRN IV NAUSEA AND/OR VOMITING Last administered on 06/14/16 04:47; Admin Dose 10 MG; Start 06/12/16 at 20:30 Acetaminophen (Tylenol Tab) 650 mg Q6H PRN PO PAIN LEVEL 1-3 OR FEVER; Start at 20:30 Morphine Sulfate (morphine) 2 mg Q4H PRN IV SEVERE PAIN LEVEL 7-10 Last administered on 06/14/16 10:10; Admin Dose 2 MG; Start 06/12/16 at 20:30 Famotidine (Pepcid Iv) 20 mg DAILY IV Last administered on 06/14/16 09:07; Admin Dose 20 MG; Start 06/12/16 at 22:00 Enoxaparin Sodium (Lovenox) 40 mg DAILY SC Last administered on 06/14/16 10:07 ; Admin Dose 40 MG; Start 06/13/16 at 09:00 Guanfacine HCl (Tenex) 1 mg HS PO ; Start 06/13/16 at 21:00 Spironolactone (Aldactone) 25 mg DAILY PO Last administered on 06/14/16 09:07; Admin Dose 25 MG; Start 06/13/16 at 09:00 Chlorthalidone (Hygroton) 25 mg QHS PO ; Start 06/13/16 at 21:00 Lactulose (Enulose) 20 gm Q8 PO Last administered on 06/14/16 02:56; Admin Dose 20 GM; Start 06/13/16 at 14:00 SIMON GO MD Jun 14, 2016 13:42
[2016-06-14 16:03] VITALS: BP 132/86; PULSE 84
--- NOTE | 2016-06-14 17:46 | RADRPT ---
PROCEDURE: XR Chest. CLINICAL INDICATION: Hypertension. TECHNIQUE: Single frontal view. COMPARISON: None. FINDINGS: The lungs are clear. The heart is enlarged. There is no pleural effusion. There is no pneumothorax. IMPRESSION: 1. Cardiomegaly. 2. Clear lungs. RPTAT: QQ .Boogie Hanks MD, MD Date Time Electronically viewed and signed by .Boogie Hanks MD, MD on 06/14/2016 17:45 .R/
--- NOTE | 2016-06-14 17:48 | RADRPT ---
PROCEDURE: XR Abdomen. CLINICAL INDICATION: Abdomen pain. TECHNIQUE: Two views. AP supine and AP erect. COMPARISON: None. FINDINGS: There is no free air. There is gaseous distension of the colon. There is no small bowel distension. There are no abnormal calcifications overlying the urinary tracts. The osseus structures are unremarkable. IMPRESSION: 1. Gaseous distension of the colon which may indicate distal obstruction. Correlation with CT scan advised. 2. Otherwise unremarkable study. RPTAT: QQ .Boogie Hanks MD, Date Time Electronically viewed and signed by .Boogie Hanks MD, on 06/14/2016 17:48 .R/
[2016-06-14 20:02] VITALS: BP 182/109; RESP 20
--- NOTE | 2016-06-14 20:04 | PN ---
Date/Time of Note Date/Time of Note DATE: 06/14/16 TIME: 20:03 Assessment/Plan VTE Prophylaxis VTE Prophylaxis Intervention: SCD's Lines/Catheters IV Catheter Type (from Nrsg): Saline Lock Assessment/Plan Chief Complaint/Hosp Course 1) Anal pain s/p fissurectomy General surgery cosnutl 2) Functional constipation s/p multiple bowel regimen, no BM yet 3) Renal insufficiency SCD for DVT prophylaxis Plan for OR decompression tomorrow Problems: Subjective 24 Hr Interval Summary Free Text/Dictation no BM yet, pt already received Mag citrate, Lactulsoe Exam/Review of Systems Vital Signs Vitals Vital Signs Date Time Temp Pulse Resp B/P Pulse Ox O2 Delivery O2 Flow Rate FiO2 06/14/16 16:03 84 132/86 06/14/16 08:17 98.2 16 100 06/12/16 21:49 Room Air Intake and Output 06/13/16 06/13/16 06/14/16 15:00 23:00 07:00 Intake Total 830 ml 600 ml Output Total 102 ml Balance 830 ml 498 ml Exam Constitutional: alert, oriented, other (anxious), well developed Respiratory: clear to auscultation, normal air movement Cardiovascular: nl pulses, regular rate and rhythm Gastrointestinal: bowel sounds, nl liver, spleen, non-tender, soft, No rebound or guarding, No tender Musculoskeletal: nl extremities to inspection, nl gait and stance Extremities: normal pulses Neurological: MILK PICKUP DRIVER II-XII intact, nl mental status, nl speech, nl strength Results Result Diagram: 06/14/16 0534 06/14/16 0537 Results 24 hrs Laboratory Tests Test 06/14/16 05:34 06/14/16 05:37 White Blood Count 13.9 #H Red Blood Count 4.19 L Hemoglobin 12.7 Hematocrit 38.6 Mean Corpuscular Volume 92.1 Mean Corpuscular Hemoglobin 30.3 Mean Corpuscular Hemoglobin Concent 32.9 Red Cell Distribution Width 14.6 H Platelet Count 290 Mean Platelet Volume 9.9 Neutrophils % 83.1 H Lymphocytes % 9.9 L Monocytes % 6.4 Eosinophils % 0.0 Basophils % 0.2 Nucleated Red Blood Cells % 0.0 Neutrophils # 11.5 H Lymphocytes # 1.4 Monocytes # 0.9 Eosinophils # 0.0 Basophils # 0.0 Nucleated Red Blood Cells # 0.0 Magnesium Level 4.3 H Sodium Level 150 H Potassium Level 3.5 Chloride Level 101 Carbon Dioxide Level 29 Anion Gap 24 #H Blood Urea Nitrogen 19 Creatinine 1.65 H Glucose Level 121 Calcium Level 10.4 H Medications Medications Current Medications Ondansetron HCl (Zofran Tab) 4 mg Q6H PRN PO NAUSEA AND/OR VOMITING; Start 06/12 at 20:30 Metoclopramide HCl (Reglan) 10 mg Q6H PRN IV NAUSEA AND/OR VOMITING Last administered on 06/14/16 04:47; Admin Dose 10 MG; Start 06/12/16 at 20:30 Acetaminophen (Tylenol Tab) 650 mg Q6H PRN PO PAIN LEVEL 1-3 OR FEVER; Start at 20:30 Morphine Sulfate (morphine) 2 mg Q4H PRN IV SEVERE PAIN LEVEL 7-10 Last administered on 06/14/16 10:10; Admin Dose 2 MG; Start 06/12/16 at 20:30 Famotidine (Pepcid Iv) 20 mg DAILY IV Last administered on 06/14/16 09:07; Admin Dose 20 MG; Start 06/12/16 at 22:00 Enoxaparin Sodium (Lovenox) 40 mg DAILY SC Last administered on 06/14/16 10:07 ; Admin Dose 40 MG; Start 06/13/16 at 09:00 Guanfacine HCl (Tenex) 1 mg HS PO ; Start 06/13/16 at 21:00 Spironolactone (Aldactone) 25 mg DAILY PO Last administered on 06/14/16 09:07; Admin Dose 25 MG; Start 06/13/16 at 09:00 Chlorthalidone (Hygroton) 25 mg QHS PO ; Start 06/13/16 at 21:00 Lactulose (Enulose) 20 gm Q8 PO Last administered on 06/14/16 02:56; Admin Dose 20 GM; Start 06/13/16 at 14:00 ROCKY HARRISON MD Jun 14, 2016 20:04
[2016-06-14] MEDS: GUANFACINE 1 MG TAB PO SCH (20:15)
[2016-06-14] MEDS: CHLORTHALIDONE 25 MG TAB PO SCH (20:16)
[2016-06-14 23:00] VITALS: BP 135/92; PULSE 92
[2016-06-15] VITALS (15 sets, daily range): BP systolic 116–156; BP diastolic 72–97; PULSE 80–110; RESP 12–20
[2016-06-15] MEDS: morphine 2 MG INJ IV PRN ×3 (02:55→15:21)
[2016-06-15] MEDS: LACTULOSE 30ML CUP PO SCH ×3 (04:14→21:10)
[2016-06-15 06:00] LABS: ADD SCAN DIFF NO
[2016-06-15 06:12] LABS: INR 1.29; PROTIME 16.2 Sec (12.2-14.2); PT RATIO 1.3
[2016-06-15 06:13] LABS: PARTIAL THROMBOPLASTIN TIME 31.4 Sec (25.0-35.0)
[2016-06-15 06:18] LABS: BASOPHILS % 0.2 % (0.0-2.0); HEMATOCRIT 35.7 % (37.0-47.0); HEMOGLOBIN 11.6 g/dl (12.0-16.0); MEAN CORPUSCULAR HEMOGLOBIN 29.9 pg (29.0-33.0); MEAN CORPUSCULAR HGB CONC 32.5 g/dl (32.0-37.0); MEAN PLATELET VOLUME 10.5 fl (7.4-10.4); MONOCYTE # 0.6 10^3/ul (0.3-0.9); MONOCYTES % 9.8 % (0.0-11.0); NEUTROPHIL # 4.2 10^3/ul (1.6-7.5); NEUTROPHILS % 72.8 % (39.0-77.0); PLATELET COUNT 245 10^3/UL (140-415); RED BLOOD COUNT 3.88 10^6/ul (4.20-5.40); RED CELL DISTRIBUTION WIDTH 14.7 % (11.5-14.5); WHITE BLOOD COUNT 5.8 10^3/ul (4.8-10.8)
[2016-06-15 07:13] LABS: CALCIUM 9.4 mg/dl (8.4-10.2); CREATININE 1.44 mg/dl (0.44-1.00); POTASSIUM 3.5 mmol/L (3.5-5.1)
[2016-06-15] MEDS: ENOXAPARIN 40 MG/0.4 ML SYG SC SCH (09:00)
[2016-06-15] MEDS ORDERED: MIDAZOLAM 1 MG/ML 2 ML INJ ONE (10:18)
[2016-06-15] MEDS ORDERED: LIDOCAINE 2% (SDV) 5 ML INJ ONE (10:19)
[2016-06-15] MEDS ORDERED: PROPOFOL 20 ML ONE (10:19)
[2016-06-15] MEDS ORDERED: FENTAnyl 50 MCG/ML VIAL ONE (10:19)
[2016-06-15] MEDS ORDERED: MEPERIDINE 25 MG INJ IV PRN (10:30)
[2016-06-15] MEDS ORDERED: PROCHLORPERAZINE 10 MG INJ IV PRN (10:30)
[2016-06-15] MEDS ORDERED: METOCLOPRAMIDE 10 MG INJ IV PRN (10:30)
[2016-06-15] MEDS ORDERED: ONDANSETRON 4 MG INJ IV PRN (10:30)
[2016-06-15] MEDS ORDERED: DIPHENHYDRAMINE 50 MG INJ IV PRN (10:30)
[2016-06-15] MEDS ORDERED: ONDANSETRON 4 MG INJ ONE (11:26)
[2016-06-15] MEDS ORDERED: METOCLOPRAMIDE 10 MG INJ ONE (11:26)
[2016-06-15] MEDS ORDERED: PHENYLephrine (100 MCG/ML) 5ML SYG ONE (11:31)
[2016-06-15] MEDS ORDERED: BUPIVACAINE 0.25% (MPF) 30 ML INJ ONE (11:33)
[2016-06-15] MEDS ORDERED: HYDROCODONE/APAP (5/325) TAB PO PRN (12:00)
[2016-06-15] MEDS: FENTAnyl 50 MCG/ML VIAL IV PRN ×2 (12:08→12:16)
--- NOTE | 2016-06-15 12:39 | PN ---
Date/Time of Note Date/Time of Note DATE: 06/15/16 TIME: 12:37 Assessment/Plan VTE Prophylaxis VTE Prophylaxis Intervention: SCD's Lines/Catheters IV Catheter Type (from Nrs): Peripheral IV Urinary Cath still in place: No Assessment/Plan Chief Complaint/Hosp Course 1) Anal pain s/p fissurectomy General surgery cosnutl 2) Functional constipation s/p multiple bowel regimen, no BM yet 3) Renal insufficiency SCD for DVT prophylaxis Plan for OR decompression tomorrow Problems: Assessment/Plan 1) Anal pain s/p fissurectomy 2) Functional constipation s/p multiple bowel regimen, no BM yet - s/p anal dilation and fecal disimpaction in OR today, c/o anal pain, 08/18 3) Renal insufficiency- improved SCD for DVT prophylaxis Subjective 24 Hr Interval Summary Free Text/Dictation s/p anal dilation and fecal disimpaction,BP stable, afebrile Exam/Review of Systems Vital Signs Vitals Vital Signs Date Time Temp Pulse Resp B/P Pulse Ox O2 Delivery O2 Flow Rate FiO2 06/15/16 12:23 98 16 142/95 100 Room Air 06/15/16 11:50 98.2 Intake and Output 06/14/16 06/14/16 06/15/16 15:00 23:00 07:00 Intake Total 480 ml 540 ml Balance 480 ml 540 ml Exam Constitutional: alert, oriented, other (anxious), well developed Respiratory: clear to auscultation, normal air movement Cardiovascular: nl pulses, regular rate and rhythm Gastrointestinal: bowel sounds, nl liver, spleen, non-tender, soft, No rebound or guarding, No tender Musculoskeletal: nl extremities to inspection, nl gait and stance Extremities: normal pulses Neurological: WOOD CABINETMAKER II-XII intact, nl mental status, nl speech, nl strength Results Result Diagram: 06/15/1618 06/15/1618 Results 24 hrs Laboratory Tests Test 06/15/16 05:18 White Blood Count 5.8 # Red Blood Count 3.88 L Hemoglobin 11.6 L Hematocrit 35.7 L Mean Corpuscular Volume 92.0 Mean Corpuscular Hemoglobin 29.9 Mean Corpuscular Hemoglobin Concent 32.5 Red Cell Distribution Width 14.7 H Platelet Count 245 Mean Platelet Volume 10.5 H Neutrophils % 72.8 Lymphocytes % 17.0 Monocytes % 9.8 Eosinophils % 0.0 Basophils % 0.2 Nucleated Red Blood Cells % 0.0 Neutrophils # 4.2 Lymphocytes # 1.0 Monocytes # 0.6 Eosinophils # 0.0 Basophils # 0.0 Nucleated Red Blood Cells # 0.0 Prothrombin Time 16.2 H Prothrombin Time Ratio 1.3 INR International Normalized Ratio 1.29 Activated Partial Thromboplast Time 31.4 Sodium Level 142 Potassium Level 3.5 Chloride Level 103 Carbon Dioxide Level 30 Anion Gap 13 # Blood Urea Nitrogen 19 Creatinine 1.44 H Glucose Level 106 Calcium Level 9.4 Medications Medications Current Medications Ondansetron HCl (Zofran Tab) 4 mg Q6H PRN PO NAUSEA AND/OR VOMITING; Start 06/12 at 20:30 Metoclopramide HCl (Reglan) 10 mg Q6H PRN IV NAUSEA AND/OR VOMITING Last administered on 06/14/16 04:47; Admin Dose 10 MG; Start 06/12/16 at 20:30 Acetaminophen (Tylenol Tab) 650 mg Q6H PRN PO PAIN LEVEL 1-3 OR FEVER; Start at 20:30 Morphine Sulfate (morphine) 2 mg Q4H PRN IV SEVERE PAIN LEVEL 7-10 Last administered on 06/15/16 02:55; Admin Dose 2 MG; Start 06/12/16 at 20:30 Famotidine (Pepcid Iv) 20 mg DAILY IV Last administered on 06/14/16 09:07; Admin Dose 20 MG; Start 06/12/16 at 22:00 Enoxaparin Sodium (Lovenox) 40 mg DAILY SC Last administered on 06/14/16 10:07 ; Admin Dose 40 MG; Start 06/13/16 at 09:00 Guanfacine HCl (Tenex) 1 mg HS PO Last administered on 06/14/16 20:15; Admin Dose 1 MG; Start 06/13/16 at 21:00 Spironolactone (Aldactone) 25 mg DAILY PO Last administered on 06/14/16 09:07; Admin Dose 25 MG; Start 06/13/16 at 09:00 Chlorthalidone (Hygroton) 25 mg QHS PO Last administered on 06/14/16 20:16; Admin Dose 25 MG; Start 06/13/16 at 21:00 Lactulose 20 gm 20 gm Q8 PO Last administered on 4/6/17at 02:56; Admin Dose 20 GM; Start 06/13/16 at 14:00 Metronidazole 100 ml @ 100 mls/hr Q8H IVPB ; Start 06/15/16 at 14:00; Stop at 06:59 Ciprofloxacin/ Dextrose (Cipro Ivpb) 200 ml @ 200 mls/hr Q12H IVPB ; Start 06/15 at 12:00; Stop 06/16/16 at 00:59 Morphine Sulfate (morphine) 2 mg Q2H PRN IV BREAKTHROUGH PAIN; Start 06/15/16 at 12:00 Acetaminophen/ Hydrocodone Bitart 1 tab 1 tab Q6H PRN PO PAIN LEVEL 6-10; Start 06/15/16 at 12:00 Lactated Ringer's (Lr) 1,000 ml @ 100 mls/hr Q10H IV ; Start 06/15/16 at 11:52 ROCKY HARRISON MD Jun 15, 2016 12:39
--- NOTE | 2016-06-15 12:55 | CONS ---
Date/Time of Note Date/Time of Note DATE: 06/15/16 TIME: 12:48 Assessment/Plan Assessment/Plan Additional Assessment/Plan Assessment * Constipation * s/p surgical disimpaction * Anal pain * S/P Fissurectomy 2 weeks ago * 06/11/2016 CT abdomen /pelvis: 1. Significant stool retention in the sigmoid colon and the rectum. 2. Normal heart size with mild circumferential pericardial effusion. 3. Status post cholecystectomy. No biliary ductal dilatation. 4. A punctate 2 mm nonobstructing stone in the right kidney. * Hypertension Plan * Advance diet per surgery * Further recommendations depend on clinical course * Pt seen in collaboration with Dr. Ybarra Consultation Date/Type/Reason Admit Date/Time Jun 14, 2016 at 11:16 Initial Consult Date Type of Consultation: Gastroenterology Referring Provider: LESLY REN DO 24 HR Interval Summary Free Text/Dictation Status post surgical procedure Exam/Review of Systems Vital Signs Vitals Vital Signs Date Time Temp Pulse Resp B/P Pulse Ox O2 Delivery O2 Flow Rate FiO2 06/15/16 12:23 98 16 142/95 100 Room Air 06/15/16 11:50 98.2 Intake and Output 06/14/16 06/14/16 06/15/16 15:00 23:00 07:00 Intake Total 480 ml 540 ml Balance 480 ml 540 ml Exam Constitutional: awake, well developed Respiratory: clear to auscultation, normal air movement Cardiovascular: nl pulses, regular rate and rhythm Gastrointestinal: bowel sounds, nl liver, spleen, non-tender, soft, No rebound or guarding, No tender Musculoskeletal: nl extremities to inspection, nl gait and stance Extremities: normal pulses Neurological: DINING HOST II-XII intact, nl mental status, nl speech, nl strength Results Result Diagram: 06/15/1618 06/15/1618 Results 24 hrs Laboratory Tests Test 06/15/16 05:18 White Blood Count 5.8 # Red Blood Count 3.88 L Hemoglobin 11.6 L Hematocrit 35.7 L Mean Corpuscular Volume 92.0 Mean Corpuscular Hemoglobin 29.9 Mean Corpuscular Hemoglobin Concent 32.5 Red Cell Distribution Width 14.7 H Platelet Count 245 Mean Platelet Volume 10.5 H Neutrophils % 72.8 Lymphocytes % 17.0 Monocytes % 9.8 Eosinophils % 0.0 Basophils % 0.2 Nucleated Red Blood Cells % 0.0 Neutrophils # 4.2 Lymphocytes # 1.0 Monocytes # 0.6 Eosinophils # 0.0 Basophils # 0.0 Nucleated Red Blood Cells # 0.0 Prothrombin Time 16.2 H Prothrombin Time Ratio 1.3 INR International Normalized Ratio 1.29 Activated Partial Thromboplast Time 31.4 Sodium Level 142 Potassium Level 3.5 Chloride Level 103 Carbon Dioxide Level 30 Anion Gap 13 # Blood Urea Nitrogen 19 Creatinine 1.44 H Glucose Level 106 Calcium Level 9.4 Medications Medications Current Medications Ondansetron HCl (Zofran Tab) 4 mg Q6H PRN PO NAUSEA AND/OR VOMITING; Start 06/12 at 20:30 Metoclopramide HCl (Reglan) 10 mg Q6H PRN IV NAUSEA AND/OR VOMITING Last administered on 06/14/16 04:47; Admin Dose 10 MG; Start 06/12/16 at 20:30 Acetaminophen (Tylenol Tab) 650 mg Q6H PRN PO PAIN LEVEL 1-3 OR FEVER; Start at 20:30 Morphine Sulfate (morphine) 2 mg Q4H PRN IV SEVERE PAIN LEVEL 7-10 Last administered on 06/15/16 02:55; Admin Dose 2 MG; Start 06/12/16 at 20:30 Famotidine (Pepcid Iv) 20 mg DAILY IV Last administered on 06/14/16 09:07; Admin Dose 20 MG; Start 06/12/16 at 22:00 Enoxaparin Sodium (Lovenox) 40 mg DAILY SC Last administered on 06/14/16 10:07 ; Admin Dose 40 MG; Start 06/13/16 at 09:00 Guanfacine HCl (Tenex) 1 mg HS PO Last administered on 06/14/16 20:15; Admin Dose 1 MG; Start 06/13/16 at 21:00 Spironolactone (Aldactone) 25 mg DAILY PO Last administered on 06/14/16 09:07; Admin Dose 25 MG; Start 06/13/16 at 09:00 Chlorthalidone (Hygroton) 25 mg QHS PO Last administered on 06/14/16 20:16; Admin Dose 25 MG; Start 06/13/16 at 21:00 Lactulose 20 gm 20 gm Q8 PO Last administered on 06/14/16 02:56; Admin Dose 20 GM; Start 06/13/16 at 14:00 Metronidazole 100 ml @ 100 mls/hr Q8H IVPB ; Start 06/15/16 at 14:00; Stop at 06:59 Ciprofloxacin/ Dextrose (Cipro Ivpb) 200 ml @ 200 mls/hr Q12H IVPB ; Start 06/15 at 12:00; Stop 06/16/16 at 00:59 Morphine Sulfate (morphine) 2 mg Q2H PRN IV BREAKTHROUGH PAIN; Start 06/15/16 at 12:00 Acetaminophen/ Hydrocodone Bitart 1 tab 1 tab Q6H PRN PO PAIN LEVEL 6-10; Start 06/15/16 at 12:00 Lactated Ringer's (Lr) 1,000 ml @ 100 mls/hr Q10H IV ; Start 06/15/16 at 11:52 SATHISH RANDHAWA Jun 15, 2016 12:54
[2016-06-15] MEDS: CIPROFLOXACIN 400MG/D5W 200 ML IVPB SCH ×2 (13:03→23:50)
[2016-06-15] MEDS: LACTATED RINGER'S 1,000 ML IV SCH ×2 (13:03→21:52)
[2016-06-15 14:01] LABS: ADD SCAN DIFF NO
[2016-06-15 14:03] LABS: HEMATOCRIT 37.5 % (37.0-47.0); HEMOGLOBIN 11.9 g/dl (12.0-16.0); MEAN CORPUSCULAR HEMOGLOBIN 29.4 pg (29.0-33.0); MEAN CORPUSCULAR HGB CONC 31.7 g/dl (32.0-37.0); MEAN CORPUSCULAR VOLUME 92.6 fl (82.0-101.0); MEAN PLATELET VOLUME 9.9 fl (7.4-10.4); PLATELET COUNT 250 10^3/UL (140-415); RED BLOOD COUNT 4.05 10^6/ul (4.20-5.40); RED CELL DISTRIBUTION WIDTH 14.6 % (11.5-14.5); WHITE BLOOD COUNT 5.3 10^3/ul (4.8-10.8)
[2016-06-15] MEDS: HYDROmorphONE 1 MG/ML SYG IV PRN ×3 (14:06→22:10)
[2016-06-15] MEDS: metroNIDAZOLE 500 MG/NS (PMX) 100 ML IVPB SCH ×2 (14:07→21:09)
[2016-06-15] MEDS: SPIRONOLACTONE 25 MG TAB PO SCH (14:07)
[2016-06-15] MEDS: FAMOTIDINE 20 MG INJ IV SCH (14:07)
[2016-06-15 14:14] LABS: ALBUMIN 4.7 g/dl (3.3-4.9); POTASSIUM 3.8 mmol/L (3.5-5.1)
[2016-06-15 14:17] LABS: ALBUMIN/GLOBULIN RATIO 1.11; BILIRUBIN,INDIRECT 0.6 mg/dl (0-1.1); BILIRUBIN,TOTAL 0.6 mg/dl (0.2-1.3); CREATININE 1.54 mg/dl (0.44-1.00); TOTAL PROTEIN 8.9 g/dl (6.1-8.1)
[2016-06-15 14:18] LABS: CALCIUM 9.7 mg/dl (8.4-10.2)
[2016-06-15 15:20] LABS: LYMPHOCYTES # 1.3 10^3/ul (0.8-2.9); MONOCYTE # 0.3 10^3/ul (0.3-0.9); NEUTROPHIL # 3.4 10^3/ul (1.6-7.5); PLATELET ESTIMATE PLT APPEAR ADEQUATE
--- NOTE | 2016-06-15 15:41 | RADRPT ---
V[place] Rate: 80 bpm RR Interval: 0 msec [place] Interval: 162 msec QRS Duration: 88 msec QT Interval: 380 msec QTC Interval: 438 msec P-R-T [place]: 68 - -26 - 123 degrees Normal sinus rhythm Nonspecific T wave abnormality Abnormal ECG Electronically Signed By: Luis Angel Avalos [id number]
[2016-06-15] MEDS: CHLORTHALIDONE 25 MG TAB PO SCH (21:10)
[2016-06-15] MEDS: GUANFACINE 1 MG TAB PO SCH (21:10)
[2016-06-16] MEDS: LACTATED RINGER'S 1,000 ML IV SCH ×2 (04:12→17:15)
[2016-06-16] MEDS: metroNIDAZOLE 500 MG/NS (PMX) 100 ML IVPB SCH (05:51)
[2016-06-16] MEDS: LACTULOSE 30ML CUP PO SCH ×3 (06:00→21:01)
[2016-06-16 06:27] LABS: ADD SCAN DIFF NO
[2016-06-16 06:34] LABS: BASOPHILS % 0.3 % (0.0-2.0); HEMATOCRIT 33.7 % (37.0-47.0); HEMOGLOBIN 10.7 g/dl (12.0-16.0); LYMPHOCYTES # 0.9 10^3/ul (0.8-2.9); LYMPHOCYTES % 13.2 % (15.0-51.0); MEAN CORPUSCULAR HEMOGLOBIN 29.7 pg (29.0-33.0); MEAN CORPUSCULAR HGB CONC 31.8 g/dl (32.0-37.0); MEAN CORPUSCULAR VOLUME 93.6 fl (82.0-101.0); MEAN PLATELET VOLUME 10.6 fl (7.4-10.4); MONOCYTE # 0.8 10^3/ul (0.3-0.9); MONOCYTES % 12.3 % (0.0-11.0); NEUTROPHIL # 4.9 10^3/ul (1.6-7.5); NEUTROPHILS % 73.7 % (39.0-77.0); PLATELET COUNT 245 10^3/UL (140-415); RED CELL DISTRIBUTION WIDTH 14.6 % (11.5-14.5); WHITE BLOOD COUNT 6.6 10^3/ul (4.8-10.8)
[2016-06-16 07:16] LABS: POTASSIUM 3.7 mmol/L (3.5-5.1)
[2016-06-16 07:19] LABS: CREATININE 1.69 mg/dl (0.44-1.00)
[2016-06-16 07:20] LABS: CALCIUM 8.9 mg/dl (8.4-10.2)
[2016-06-16 08:12] VITALS: BP 108/63; RESP 18
--- NOTE | 2016-06-16 09:01 | CONS ---
Date/Time of Note Date/Time of Note DATE: 06/16/16 TIME: 08:59 Consult Date/Type/Reason Admit Date/Time Jun 14, 2016 at 11:16 Initial Consult Date Type of Consultation: internal medicine Ordering Provider: LESLY REN DO Subjective Patient continues to have pain around the anus Started to pass gas Still has mild abdominal discomfort Objective Vital Signs Date Time Temp Pulse Resp B/P Pulse Ox O2 Delivery O2 Flow Rate FiO2 06/16/16 08:12 98.1 86 18 108/63 98 06/16/16 01:11 Nasal Cannula 2.0 Intake and Output 06/15/16 06/15/16 06/16/16 15:00 23:00 07:00 Intake Total 440 ml 1520 ml Output Total 4 ml Balance -4 ml 440 ml 1520 ml Exam GENERAL: Moderately obese lady comfortable at rest no acute distress VITAL SIGNS: per chart NECK: Supple. No JVD or lymphadenopathy. CARDIAC EXAM: S1, S2. No added sounds or murmurs. CHEST: clear bilaterally, No added sounds, rales or wheezes ABDOMEN: Soft, nontender. mild distention no guarding or rebound EXTREMITIES: No cyanosis, clubbing or edema. NEUROLOGIC: Generalized weakness. No focal deficits. Results/Medications Result Diagram: 06/16/16 0512 06/16/16 0612 Results 24 hrs Laboratory Tests Test 06/15/16 13:15 06/16/16 05:12 06/16/16 06:12 White Blood Count 5.3 6.6 # Red Blood Count 4.05 L 3.60 L Hemoglobin 11.9 L 10.7 L Hematocrit 37.5 33.7 L Mean Corpuscular Volume 92.6 93.6 Mean Corpuscular Hemoglobin 29.4 29.7 Mean Corpuscular Hemoglobin Concent 31.7 L 31.8 L Red Cell Distribution Width 14.6 H 14.6 H Platelet Count 250 245 Mean Platelet Volume 9.9 10.6 H Neutrophils % 65.0 73.7 Band Neutrophils % 5.0 Lymphocytes % 25.0 13.2 L Monocytes % 5.0 12.3 H Eosinophils % 0.0 Neutrophils # 3.4 4.9 Lymphocytes # 1.3 0.9 Monocytes # 0.3 0.8 Eosinophils # 0.0 Platelet Estimate PLT APPEAR ADEQUATE Sodium Level 144 143 Potassium Level 3.8 3.7 Chloride Level 99 97 Carbon Dioxide Level 32 H 31 Anion Gap 17 H 19 H Blood Urea Nitrogen 20 25 H Creatinine 1.54 H 1.69 H Glucose Level 123 98 Calcium Level 9.7 8.9 Total Bilirubin 0.6 Direct Bilirubin 0.00 Indirect Bilirubin 0.6 Aspartate Amino Transf (AST/SGOT) 127 H Alanine Aminotransferase (ALT/SGPT) 64 Alkaline Phosphatase 59 Total Protein 8.9 H Albumin 4.7 Globulin 4.20 H Albumin/Globulin Ratio 1.11 Basophils % 0.3 Nucleated Red Blood Cells % 0.0 Basophils # 0.0 Nucleated Red Blood Cells # 0.0 Medications Current Medications Ondansetron HCl (Zofran Tab) 4 mg Q6H PRN PO NAUSEA AND/OR VOMITING; Start 06/12 at 20:30 Metoclopramide HCl (Reglan) 10 mg Q6H PRN IV NAUSEA AND/OR VOMITING Last administered on 06/14/16 04:47; Admin Dose 10 MG; Start 06/12/16 at 20:30 Acetaminophen (Tylenol Tab) 650 mg Q6H PRN PO PAIN LEVEL 1-3 OR FEVER; Start at 20:30 Morphine Sulfate (morphine) 2 mg Q4H PRN IV SEVERE PAIN LEVEL 7-10 Last administered on 06/15/16 02:55; Admin Dose 2 MG; Start 06/12/16 at 20:30 Famotidine (Pepcid Iv) 20 mg DAILY IV Last administered on 06/15/16 14:07; Admin Dose 20 MG; Start 06/12/16 at 22:00 Enoxaparin Sodium (Lovenox) 40 mg DAILY SC Last administered on 06/14/16 10:07 ; Admin Dose 40 MG; Start 06/13/16 at 09:00 Guanfacine HCl (Tenex) 1 mg HS PO Last administered on 06/15/16 21:10; Admin Dose 1 MG; Start 06/13/16 at 21:00 Spironolactone (Aldactone) 25 mg DAILY PO Last administered on 06/15/16 14:07; Admin Dose 25 MG; Start 06/13/16 at 09:00 Chlorthalidone (Hygroton) 25 mg QHS PO Last administered on 06/15/16 21:10; Admin Dose 25 MG; Start 06/13/16 at 21:00 Lactulose (Enulose) 20 gm Q8 PO Last administered on 06/14/16 02:56; Admin Dose 20 GM; Start 06/13/16 at 14:00 Morphine Sulfate (morphine) 2 mg Q2H PRN IV BREAKTHROUGH PAIN Last administered on 06/15/16 15:21; Admin Dose 2 MG; Start 06/15/16 at 12:00 Acetaminophen/ Hydrocodone Bitart 1 tab 1 tab Q6H PRN PO PAIN LEVEL 6-10; Start 06/15/16 at 12:00 Lactated Ringer's (Lr) 1,000 ml @ 100 mls/hr Q10H IV Last administered on 04:12; Admin Dose 100 MLS/HR; Start 06/15/16 at 11:52 Hydromorphone HCl (Dilaudid) 0.5 mg Q2H PRN IV PAIN Last administered on 22:10; Admin Dose 0.5 MG; Start 06/15/16 at 14:00 Assessment/Plan Chief Complaint/Hosp Course Assessment/Plan 1) Anal pain s/p fissurectomy. 2) Functional constipation, status post surgical decompression 3) Renal insufficiency Plan 1) pain control surgical recommendations 2) continue GI recommendations, stool softeners 3) Renal insufficiency-IV fluids 4) DVT and GI prophylaxis 5) encourage ambulation Problems: REHAN GUTIERREZ MD, [facility] Jun 16, 2016 09:01
[2016-06-16] MEDS: SPIRONOLACTONE 25 MG TAB PO SCH (09:08)
[2016-06-16] MEDS: FAMOTIDINE 20 MG INJ IV SCH (09:08)
[2016-06-16] MEDS: ENOXAPARIN 40 MG/0.4 ML SYG SC SCH (09:15)
--- NOTE | 2016-06-16 09:52 | CONS ---
Date/Time of Note Date/Time of Note DATE: 06/16/16 TIME: 09:51 Assessment/Plan Assessment/Plan Additional Assessment/Plan Assessment * Constipation * s/p surgical disimpaction * Anal pain * S/P Fissurectomy 2 weeks ago * 06/11/2016 CT abdomen /pelvis: 1. Significant stool retention in the sigmoid colon and the rectum. 2. Normal heart size with mild circumferential pericardial effusion. 3. Status post cholecystectomy. No biliary ductal dilatation. 4. A punctate 2 mm nonobstructing stone in the right kidney. * Hypertension Plan * Advance diet per surgery * Further recommendations depend on clinical course * Pt seen in collaboration with Dr. Ybarra Consultation Date/Type/Reason Admit Date/Time Jun 14, 2016 at 11:16 Type of Consultation: GI Referring Provider: LESLY REN DO 24 HR Interval Summary Free Text/Dictation Tolerating diet Stable from GI standpoint Exam/Review of Systems Vital Signs Vitals Vital Signs Date Time Temp Pulse Resp B/P Pulse Ox O2 Delivery O2 Flow Rate FiO2 06/16/16 08:12 98.1 86 18 108/63 98 06/16/16 01:11 Nasal Cannula 2.0 Intake and Output 06/15/16 06/15/16 06/16/16 15:00 23:00 07:00 Intake Total 440 ml 1520 ml Output Total 4 ml Balance -4 ml 440 ml 1520 ml Exam Constitutional: awake, well developed Respiratory: clear to auscultation, normal air movement Cardiovascular: nl pulses, regular rate and rhythm Gastrointestinal: bowel sounds, nl liver, spleen, non-tender, soft, No rebound or guarding, No tender Musculoskeletal: nl extremities to inspection, nl gait and stance Extremities: normal pulses 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, nl mental status, nl speech, nl strength Results Result Diagram: 06/16/16 0512 06/16/16 0612 Results 24 hrs Laboratory Tests Test 06/15/16 13:15 06/16/16 05:12 06/16/16 06:12 White Blood Count 5.3 6.6 # Red Blood Count 4.05 L 3.60 L Hemoglobin 11.9 L 10.7 L Hematocrit 37.5 33.7 L Mean Corpuscular Volume 92.6 93.6 Mean Corpuscular Hemoglobin 29.4 29.7 Mean Corpuscular Hemoglobin Concent 31.7 L 31.8 L Red Cell Distribution Width 14.6 H 14.6 H Platelet Count 250 245 Mean Platelet Volume 9.9 10.6 H Neutrophils % 65.0 73.7 Band Neutrophils % 5.0 Lymphocytes % 25.0 13.2 L Monocytes % 5.0 12.3 H Eosinophils % 0.0 Neutrophils # 3.4 4.9 Lymphocytes # 1.3 0.9 Monocytes # 0.3 0.8 Eosinophils # 0.0 Platelet Estimate PLT APPEAR ADEQUATE Sodium Level 144 143 Potassium Level 3.8 3.7 Chloride Level 99 97 Carbon Dioxide Level 32 H 31 Anion Gap 17 H 19 H Blood Urea Nitrogen 20 25 H Creatinine 1.54 H 1.69 H Glucose Level 123 98 Calcium Level 9.7 8.9 Total Bilirubin 0.6 Direct Bilirubin 0.00 Indirect Bilirubin 0.6 Aspartate Amino Transf (AST/SGOT) 127 H Alanine Aminotransferase (ALT/SGPT) 64 Alkaline Phosphatase 59 Total Protein 8.9 H Albumin 4.7 Globulin 4.20 H Albumin/Globulin Ratio 1.11 Basophils % 0.3 Nucleated Red Blood Cells % 0.0 Basophils # 0.0 Nucleated Red Blood Cells # 0.0 Medications Medications Current Medications Ondansetron HCl (Zofran Tab) 4 mg Q6H PRN PO NAUSEA AND/OR VOMITING; Start 06/12 at 20:30 Metoclopramide HCl (Reglan) 10 mg Q6H PRN IV NAUSEA AND/OR VOMITING Last administered on 06/14/16 04:47; Admin Dose 10 MG; Start 06/12/16 at 20:30 Acetaminophen (Tylenol Tab) 650 mg Q6H PRN PO PAIN LEVEL 1-3 OR FEVER; Start at 20:30 Morphine Sulfate (morphine) 2 mg Q4H PRN IV SEVERE PAIN LEVEL 7-10 Last administered on 06/15/16 02:55; Admin Dose 2 MG; Start 06/12/16 at 20:30 Famotidine (Pepcid Iv) 20 mg DAILY IV Last administered on 06/16/16 09:08; Admin Dose 20 MG; Start 06/12/16 at 22:00 Enoxaparin Sodium (Lovenox) 40 mg DAILY SC Last administered on 06/16/16 09:15 ; Admin Dose 40 MG; Start 06/13/16 at 09:00 Guanfacine HCl (Tenex) 1 mg HS PO Last administered on 06/15/16 21:10; Admin Dose 1 MG; Start 06/13/16 at 21:00 Spironolactone (Aldactone) 25 mg DAILY PO Last administered on 06/16/16 09:08; Admin Dose 25 MG; Start 06/13/16 at 09:00 Chlorthalidone (Hygroton) 25 mg QHS PO Last administered on 06/15/16 21:10; Admin Dose 25 MG; Start 06/13/16 at 21:00 Lactulose (Enulose) 20 gm Q8 PO Last administered on 06/14/16 02:56; Admin Dose 20 GM; Start 06/13/16 at 14:00 Morphine Sulfate (morphine) 2 mg Q2H PRN IV BREAKTHROUGH PAIN Last administered on 06/15/16 15:21; Admin Dose 2 MG; Start 06/15/16 at 12:00 Acetaminophen/ Hydrocodone Bitart 1 tab 1 tab Q6H PRN PO PAIN LEVEL 6-10; Start 06/15/16 at 12:00 Lactated Ringer's (Lr) 1,000 ml @ 100 mls/hr Q10H IV Last administered on 04:12; Admin Dose 100 MLS/HR; Start 06/15/16 at 11:52 Hydromorphone HCl (Dilaudid) 0.5 mg Q2H PRN IV PAIN Last administered on 22:10; Admin Dose 0.5 MG; Start 06/15/16 at 14:00 SATHISH RANDHAWA Jun 16, 2016 09:52
[2016-06-16] MEDS: HYDROmorphONE 1 MG/ML SYG IV PRN ×2 (11:46→17:23)
[2016-06-16] MEDS: DIAZEPAM 5 MG TAB PO SCH ×2 (11:57→20:30)
--- NOTE | 2016-06-16 12:17 | PN ---
DATE: 06/16/2016 The patient is status post digital disimpaction yesterday, constipation, post fissure operation. SUBJECTIVE: The patient has passed 3 bowel movements since that time, semi-solid , semi- liquid. She has pain upon defecation and also she has pain in anal area even without defecation. No nausea, no vomiting, no fever. OBJECTIVE: GENERAL: The patient is lying down in the bed. She is not lying down flat supine, but in the decubitus position. She said if she lies down supine she gets pain in the anal area. VITAL SIGNS: Temperature 98.1, heart rate 86, respiratory rate 18, blood pressure 108/63, saturation 98% on room air. ABDOMEN: Soft, mild tenderness on deep pressure in the lower quadrant and suprapubic area. No rebound tenderness. LABS: Today WBC is 6600 with 73% segmented, hemoglobin 10.7, hematocrit 33.7. Chemistry: BUN is 25, creatinine is 1.69, both elevated. Sodium 143, potassium 3.7. ASSESSMENT: 1. Status post digital disimpaction because of constipation for about 2 weeks. 2. Renal failure to some degree. 3. Status post fissure operation 2 weeks ago. PLAN: I would recommend to give the patient diazepam (muscle relaxant) 5 mg p.o. q.12h. to see the effect of it on the anal sphincter and the pain. Meanwhile the patient is receiving Dilaudid and morphine p.r.n. for pain. Dictated By: ROBERTO THOMAS/JONATHON Conf#: [id number] DID#: [id number] MTDD
[2016-06-16 19:34] VITALS: BP 121/76; RESP 20
[2016-06-16] MEDS: GUANFACINE 1 MG TAB PO SCH (20:30)
[2016-06-16] MEDS: CHLORTHALIDONE 25 MG TAB PO SCH (20:30)
[2016-06-17] MEDS: HYDROmorphONE 1 MG/ML SYG IV PRN ×3 (03:01→20:36)
[2016-06-17] MEDS: LACTATED RINGER'S 1,000 ML IV SCH (03:05)
[2016-06-17] MEDS: LACTULOSE 30ML CUP PO SCH ×3 (05:02→21:21)
[2016-06-17 05:23] LABS: ADD SCAN DIFF NO
[2016-06-17 05:29] LABS: BASOPHILS % 0.3 % (0.0-2.0); HEMATOCRIT 30.4 % (37.0-47.0); HEMOGLOBIN 9.7 g/dl (12.0-16.0); LYMPHOCYTES # 1.2 10^3/ul (0.8-2.9); LYMPHOCYTES % 19.1 % (15.0-51.0); MEAN CORPUSCULAR HEMOGLOBIN 29.3 pg (29.0-33.0); MEAN CORPUSCULAR HGB CONC 31.9 g/dl (32.0-37.0); MEAN CORPUSCULAR VOLUME 91.8 fl (82.0-101.0); MEAN PLATELET VOLUME 10.6 fl (7.4-10.4); MONOCYTE # 0.5 10^3/ul (0.3-0.9); MONOCYTES % 7.7 % (0.0-11.0); NEUTROPHIL # 4.4 10^3/ul (1.6-7.5); NEUTROPHILS % 72.2 % (39.0-77.0); PLATELET COUNT 210 10^3/UL (140-415); RED BLOOD COUNT 3.31 10^6/ul (4.20-5.40); RED CELL DISTRIBUTION WIDTH 14.5 % (11.5-14.5); WHITE BLOOD COUNT 6.1 10^3/ul (4.8-10.8)
[2016-06-17 06:11] LABS: POTASSIUM 3.3 mmol/L (3.5-5.1)
[2016-06-17 06:14] LABS: CREATININE 1.4 mg/dl (0.44-1.00)
[2016-06-17 06:15] LABS: CALCIUM 8.6 mg/dl (8.4-10.2); MAGNESIUM 2.3 mg/dl (1.7-2.5); PHOSPHORUS 2.5 mg/dl (2.5-4.9)
[2016-06-17 08:08] VITALS: BP 131/84; RESP 20
[2016-06-17] MEDS: DIAZEPAM 5 MG TAB PO SCH (08:29)
[2016-06-17] MEDS: FAMOTIDINE 20 MG TAB PO SCH (08:29)
[2016-06-17] MEDS: SPIRONOLACTONE 25 MG TAB PO SCH (08:29)
[2016-06-17] MEDS: ENOXAPARIN 40 MG/0.4 ML SYG SC SCH (08:34)
[2016-06-17] MEDS: LIDOCAINE 2% JELLY 30 ML TOP SCH ×2 (12:00→20:36)
[2016-06-17] MEDS ORDERED: POTASSIUM CHLORIDE (SR) 20 MEQ TAB PO STA (15:15)
--- NOTE | 2016-06-17 15:23 | PN ---
DATE: Status post disimpaction of impacted stool in the rectum, status post fissurectomy 2 weeks ago. SUBJECTIVE: The patient feels slightly better with diazepam and also application of Calmoseptine cream around the anal area which is itchy, has had a bowel movement. OBJECTIVE: Alert, oriented, is slightly sleepy I think is due to the effect of the diazepam _. PHYSICAL EXAMINATION: VITAL SIGNS: Temperature 98, heart rate 80, respiratory rate 20, blood pressure 131/84, saturation 100%. ABDOMEN: Soft. Mild tenderness in lower quadrant, left side is suprapubic. LABORATORY DATA: WBC 6100, hemoglobin 9.7, hematocrit 30.4, platelets 210. Sodium 139, potassium 3.3. BUN 22, creatinine has decreased to 1.40. ASSESSMENT AND PLAN: The patient is a 41-year-old female who underwent fissurectomy about 2 to 3 weeks ago. Post-operation the patient had difficulty with bowel movement. Eventually she was so much impacted that they had to do fecal disimpaction digitally and in the operating room 2 days ago. The patient now feels better, is passing bowel movement every day, semi-liquid, semi-solid. She is tolerating food, but is still complaining of too much burning sensation and some pain down in the anal area. Yesterday started on muscle relaxant diazepam which had some effect, but the next day she was drowsy, so we are going to discontinue the 5 mg diazepam and make it 2 mg p.o. q.12h. and also we will provide Xylocaine 5% cream or ointment to the anal area. Dictated By: ROBERTO THOMAS/JONATHON Conf#: [id number] DID#: [id number] MTDD
--- NOTE | 2016-06-17 17:05 | PN ---
DATE: 06/17/2016 SUBJECTIVE: Patient is a 41-year-old black female who complains of anal pain and burning subsequent to a fissurectomy 2 days ago. She is status post constipation with decompression. She is eating a nd drinking adequately, and having some soft bowel movement reported. No other distress or events w ere reported. PHYSICAL EXAMINATION: GENERAL: Shows her to be well-developed, obese, in no acute distress. VITAL SIGNS: Pulse 80, respirations 20, blood pressure 131/84, temperature is 98 degrees. HEAD AND NECK: Shows no acute inflammation. HEART: Regular, without murmurs or gallops. CHEST: Clear. ABDOMEN: Obese, soft, nontender, without masses or organomegaly. EXTREMITIES: No clubbing, cyanosis, or edema. Periphery is warm. NEUROLOGIC: Alert, conversant. LABORATORY DATA: Sodium is 139, potassium 3.3, chloride 99, bicarbonate 31, BUN 22, creatinine 1.40 , glucose is 99, calcium 8.6, phosphate 2.5, magnesium 2.3, hemoglobin 9.7, hematocrit 30.4, white c ount 6.1 thousand, platelets 210,000. ASSESSMENT: 1. Constipation/obstipation, status post decompression. 2. Anal pain status post fissurectomy. 3. Acute renal failure on chronic kidney disease, somewhat improved. 4. Obesity. 5. Mild hypokalemia. PLAN: We will try discontinuing IV fluids, can continue oral intake. Replete potassium. Mobilize as able. Target discharge in the next 24 to 48 hours. Dictated By: QUENTIN QUACH/JONATHON Conf#: [id number] DID#: [id number]
[2016-06-17 20:01] VITALS: BP 126/80; RESP 20
[2016-06-17] MEDS: GUANFACINE 1 MG TAB PO SCH (20:32)
[2016-06-17] MEDS: CHLORTHALIDONE 25 MG TAB PO SCH (20:32)
[2016-06-17] MEDS: DIAZEPAM 2 MG TAB PO SCH (21:37)
[2016-06-18] MEDS: LACTULOSE 30ML CUP PO SCH ×2 (05:33→13:57)
[2016-06-18 05:49] LABS: ADD SCAN DIFF NO
[2016-06-18 05:52] LABS: BASOPHILS % 0.3 % (0.0-2.0); HEMATOCRIT 32.2 % (37.0-47.0); HEMOGLOBIN 10.5 g/dl (12.0-16.0); LYMPHOCYTES # 1.8 10^3/ul (0.8-2.9); LYMPHOCYTES % 27.5 % (15.0-51.0); MEAN CORPUSCULAR HEMOGLOBIN 29.4 pg (29.0-33.0); MEAN CORPUSCULAR HGB CONC 32.6 g/dl (32.0-37.0); MEAN CORPUSCULAR VOLUME 90.2 fl (82.0-101.0); MEAN PLATELET VOLUME 10.1 fl (7.4-10.4); MONOCYTE # 0.5 10^3/ul (0.3-0.9); MONOCYTES % 8.1 % (0.0-11.0); NEUTROPHIL # 4.2 10^3/ul (1.6-7.5); NEUTROPHILS % 62.3 % (39.0-77.0); NUCLEATED RED BLOOD CELLS% 0.3 /100WBC (0.0-0.0); PLATELET COUNT 236 10^3/UL (140-415); RED BLOOD COUNT 3.57 10^6/ul (4.20-5.40); RED CELL DISTRIBUTION WIDTH 14.1 % (11.5-14.5); WHITE BLOOD COUNT 6.7 10^3/ul (4.8-10.8)
[2016-06-18 06:05] LABS: POTASSIUM 3.5 mmol/L (3.5-5.1)
[2016-06-18 06:07] LABS: CREATININE 1.29 mg/dl (0.44-1.00)
[2016-06-18 06:08] LABS: CALCIUM 9.1 mg/dl (8.4-10.2)
[2016-06-18 08:17] VITALS: BP 133/82; RESP 18
[2016-06-18] MEDS: FAMOTIDINE 20 MG TAB PO SCH (08:28)
[2016-06-18] MEDS: LIDOCAINE 2% JELLY 30 ML TOP SCH (08:28)
[2016-06-18] MEDS: SPIRONOLACTONE 25 MG TAB PO SCH (08:28)
[2016-06-18] MEDS: DIAZEPAM 2 MG TAB PO SCH (08:28)
[2016-06-18] MEDS: ENOXAPARIN 40 MG/0.4 ML SYG SC SCH (08:35)
[2016-06-18] MEDS: HYDROmorphONE 1 MG/ML SYG IV PRN ×2 (10:27→18:21)
--- NOTE | 2016-06-18 10:28 | PN ---
Date/Time of Note Date/Time of Note DATE: 06/18/16 TIME: 10:27 Assessment/Plan VTE Prophylaxis VTE Prophylaxis Intervention: SCD's Lines/Catheters IV Catheter Type (from Nrs): Saline Lock Urinary Cath still in place: No Assessment/Plan Chief Complaint/Hosp Course severe constipation after anal fissurectomy Problems: Assessment/Plan s/p anal dilation and fecal disimpaction now having bm ok for discharge from surgical standpoint Subjective 24 Hr Interval Summary Free Text/Dictation patient feeling better but still some soreness Exam/Review of Systems Vital Signs Vitals Vital Signs Date Time Temp Pulse Resp B/P Pulse Ox O2 Delivery O2 Flow Rate FiO2 06/18/16 08:17 99.3 91 18 133/82 97 06/16/16 01:11 Nasal Cannula 2.0 Intake and Output 06/17/16 06/17/16 06/18/16 15:00 23:00 07:00 Intake Total 1820 ml 240 ml Balance 1820 ml 240 ml Exam deferred Results Result Diagram: 06/18/16 0520 06/18/16 0520 Results 24 hrs Laboratory Tests Test 06/18/16 05:20 White Blood Count 6.7 Red Blood Count 3.57 L Hemoglobin 10.5 L Hematocrit 32.2 L Mean Corpuscular Volume 90.2 Mean Corpuscular Hemoglobin 29.4 Mean Corpuscular Hemoglobin Concent 32.6 Red Cell Distribution Width 14.1 Platelet Count 236 Mean Platelet Volume 10.1 Neutrophils % 62.3 Lymphocytes % 27.5 Monocytes % 8.1 Eosinophils % 0.0 Basophils % 0.3 Nucleated Red Blood Cells % 0.3 H Neutrophils # 4.2 Lymphocytes # 1.8 Monocytes # 0.5 Eosinophils # 0.0 Basophils # 0.0 Nucleated Red Blood Cells # 0.0 Sodium Level 139 Potassium Level 3.5 Chloride Level 97 Carbon Dioxide Level 30 Anion Gap 16 Blood Urea Nitrogen 17 Creatinine 1.29 H Glucose Level 91 Calcium Level 9.1 Medications Medications Current Medications Ondansetron HCl (Zofran Tab) 4 mg Q6H PRN PO NAUSEA AND/OR VOMITING; Start 06/12 at 20:30 Metoclopramide HCl (Reglan) 10 mg Q6H PRN IV NAUSEA AND/OR VOMITING Last administered on 06/14/16t 04:47; Admin Dose 10 MG; Start 06/12/16 at 20:30 Acetaminophen (Tylenol Tab) 650 mg Q6H PRN PO PAIN LEVEL 1-3 OR FEVER; Start at 20:30 Morphine Sulfate (morphine) 2 mg Q4H PRN IV SEVERE PAIN LEVEL 7-10 Last administered on 06/15/16 02:55; Admin Dose 2 MG; Start 06/12/16 at 20:30 Enoxaparin Sodium (Lovenox) 40 mg DAILY SC Last administered on 06/18/16 08:35 ; Admin Dose 40 MG; Start 06/13/16 at 09:00 Guanfacine HCl (Tenex) 1 mg HS PO Last administered on 06/17/16 20:32; Admin Dose 1 MG; Start 06/13/16 at 21:00 Spironolactone (Aldactone) 25 mg DAILY PO Last administered on 06/18/16 08:28 ; Admin Dose 25 MG; Start 06/13/16 at 09:00 Chlorthalidone (Hygroton) 25 mg QHS PO Last administered on 06/17/16 20:32; Admin Dose 25 MG; Start 06/13/16 at 21:00 Lactulose (Enulose) 20 gm Q8 PO Last administered on 06/14/16 02:56; Admin Dose 20 GM; Start 06/13/16 at 14:00 Morphine Sulfate (morphine) 2 mg Q2H PRN IV BREAKTHROUGH PAIN Last administered on 06/15/16 15:21; Admin Dose 2 MG; Start 06/15/16 at 12:00 Acetaminophen/ Hydrocodone Bitart ([place] (5/325)) 1 tab Q6H PRN PO PAIN LEVEL 6 -10; Start 06/15/16 at 12:00 Hydromorphone HCl (Dilaudid) 0.5 mg Q2H PRN IV PAIN Last administered on 20:36; Admin Dose 0.5 MG; Start 06/15/16 at 14:00 Famotidine (Pepcid) 20 mg DAILY PO Last administered on 06/18/16 08:28; Admin Dose 20 MG; Start 06/17/16 at 09:00 Diazepam (Valium) 2 mg Q12 PO Last administered on 06/18/16 08:28; Admin Dose 2 MG; Start 06/17/16 at 21:00 Lidocaine (Xylocaine) 1 applic BID TOP Last administered on 06/18/16t 08:28; Admin Dose 1 APPLIC; Start 06/17/16 at 12:00 Shaq MUNSON Jun 18, 2016 10:28
--- NOTE | 2016-06-18 10:51 | PDOCDIS ---
Discharge Instructions CONDITION Patient Condition: Good HOME CARE INSTRUCTIONS: Diet Instructions: Regular ACTIVITY: Activity Restrictions: No Restrictions FOLLOW UP/APPOINTMENTS Appointments F/U WITH YOUR PCP IN 1-2 WEEKS RAY ZAIDI Jun 18, 2016 10:51
--- NOTE | 2016-06-18 12:10 | OPR ---
DATE OF OPERATION: INDICATION: This is a 41-year-old female who underwent posterior fissurectomy and presents to the E [facility] with fecal impaction. She continues to have some liquid stool but was having difficulty passing s olid stool and requested a fecal disimpaction. Risks, alternatives, benefits, and personnel were di scussed with patient. Patient expressed understanding and consents to the operation. PREOPERATIVE DIAGNOSIS: Fecal impaction. POSTOPERATIVE DIAGNOSIS: Fecal impaction. OPERATION PERFORMED: Rigid sigmoidoscopy and fecal disimpaction. SURGEON: Michelle Gilliam MD COMPLICATIONS: None. ANESTHESIA: General. DESCRIPTION OF PROCEDURE: The patient was taken to the OR and prepped and draped in usual sterile fashion. Surgical timeout was performed. IV antibiotics were given. Upon initial inspection, ther e was some narrowing of the anal canal into some scarring of the posterior area. This area was rele ased manually. A rigid sigmoidoscopy was performed, no other evidence of any masses or lesions. Th e rectum was manually disimpacted. There was good hemostasis. Dictated By: MICHELLE HARMAN/JONATHON Conf#: [id number] DID#: [id number]
--- NOTE | 2016-06-19 03:53 | DS ---
DATE OF ADMISSION: 06/14/2016 DATE OF DISCHARGE: 06/18/2016 DISCHARGE DIAGNOSES: 1. Severe constipation status post decompression. 2. Anal pain status post fissurectomy. 3. Acute on chronic renal disease, now improved. 4. Obesity. 5. Mild hypokalemia, repleted. HOSPITAL COURSE: The patient is a 41-year-old female with a history of hypertension and stroke with residual speech impediment as well as seizure. The patient presents with severe constipation for 3 weeks. The patient had a hysterectomy prior to that with Dr. Gilliam. The patient was sent to the ER by Dr. Gilliam for disimpaction by gastroenterology. The patient was taken ultimately to the OR with Dr Janice Gilliam where she had a rigid sigmoidoscopy and fecal disimpaction. The patient was doing better afte r the disimpaction. She no longer had any pain. She was cleared for discharge per surgery. On the day of discharge, the patient's vitals, labs, and physical examination were stable. She had no acu te complaints. Questions were answered. CONDITION ON DISCHARGE: Stable. DISPOSITION: To home. MEDICATIONS: The patient was to continue her usual home medications. No new medications were presc ribed. FOLLOWUP: The patient to follow up with her PCP in 1 to 2 weeks. Greater than 30 minutes was spent coordinating discharge of patient. Dictated By: RAY ZAIDI MD BS/JONATHON Conf#: [id number] DID#: [id number]
== END 2016-06-18 19:30 | disposition home or self-care (01) | DRG 392 ==
LOC: FTE 14:19 → MS2 19:46 → OBSVTOIN 06-14 11:16
PROVIDERS: ADMIT Family Medicine; ATTEND Family Medicine
PROC: 0DJD8ZZ Inspection of Lower Intestinal Tract, Via Natural or Artificial Opening Endoscopic (ICD-10-PCS; 2016-06-15)
PROC: 0DCP7ZZ Extirpation of Matter from Rectum, Via Natural or Artificial Opening (ICD-10-PCS; principal; 2016-06-15 17:30)
DX: K59.04 Chronic idiopathic constipation (principal); N17.9 Acute kidney failure, unspecified; D64.9 Anemia, unspecified; I69.328 Other speech and language deficits following cerebral infarction; G89.18 Other acute postprocedural pain; I12.9 Hypertensive chronic kidney disease with stage 1 through stage 4 chronic kidney disease, or unspecified chronic kidney disease; N18.9 Chronic kidney disease, unspecified; E66.9 Obesity, unspecified; Z68.34 Body mass index [BMI] 34.0-34.9, adult; E87.6 Hypokalemia
CPT/HCPCS: 36415; 71010; 74010; 74176; 80048; 80053; 81003; 83690; 83735; 84100; 85025; 85610; 85730; 86704; 86709; 86803; 87340; 93005; 96374; G0378; J0744; J1170; J1650; J1885; J2175; J2250; J2270; J2370; J2405; J2765; J3010; J3480; J7120